=== PATIENT | female | born 1930 | race Caucasian/White ===

== ENCOUNTER 2021-04-18 23:50 | Inpatient (IN) ==
[2021-04-18] MEDS ORDERED: ONDANSETRON INJ 2 MG/ML 2 ML VIAL ONE (23:58)
--- NOTE | 2021-04-19 00:10 | Emergency Department Note ---
Impression & Plan Femur fracture, right, Fall ED Provider Note NAME: TONY DEL CID AGE: 89 SEX: F ARRIVES VIA: Ambulance INFORMANT: Patient ED PROVIDER(S): Flor Chery DO CHIEF COMPLAINT: Right leg pain PLAN: Dis[facility]: [facility] Stable MEDICAL DECISION MAKING: This is an 89-year-old female patient who suffered a fall tonight at her son's home landing on her right leg. The patient believes that she tripped over her own feet and suffered a significant injury to her right proximal femur. X-ray confirms a comminuted right proximal femur fracture. It is located just distal to the lesser trochanter. The patient was transported here in a Wyatt splint which offered some relief of her pain. She received multiple doses of IV fentanyl for pain. It does not seem as if she is injured any other part of her body during this fall. I discussed the case with orthopedics and they agreed to take the patient to the OR tomorrow. I discussed the case with the [facility] hospitalist and they will evaluate the patient for admission to the hospital. Triage Nursing notes reviewed and agree with them. Additional history obtained from EMS and the patient's family Prior medical records reviewed Vital Signs: reviewed and remarkable for hypertension Differential diagnosis: Hip fracture, femur fracture, mechanical fall, electrolyte abnormality, UTI, generalized weakness ER treatment provided: IV fentanyl x3 IV normal saline Diagnostics interpreted by me: ECG: Sinus bradycardia at a rate of [address] segment elevation or signs of ischemia. There is no ectopy. QTC is 456 ms. Cardiac Monitoring: Sinus bradycardia at 54 Laboratory studies: See below Imaging studies: As per my interpretation Right femur x-ray: Comminuted proximal femur fracture Chest x-ray: No acute pulmonary infiltrates or consolidations Consultation(s): Dr. Burroughs - orthopedics HPI: 89/F arrives for evaluation of right leg pain. The patient was preparing to go to bed tonight while visiting her son's home when she tripped over her feet and fell to the floor landing on her right leg. She has an obvious deformity of her right midshaft femur. Patient denies feeling unwell or weak prior to the fall. She denies striking her head or losing consciousness. BLS arrived on scene and found the patient to have a deformity of the midshaft femur and a Wyatt traction splint was applied. SB: See above HPI for pertinent positives & negatives. A total of 10 systems reviewed and were otherwise negative. PAST MEDICAL HISTORY:See Below PAST SURGICAL HISTORY:See Below FAMILY HISTORY:See Below SOCIAL HISTORY:The patient lives near [place] but is visiting her son in [facility]. HOME MEDICATIONS:See Below ALLERGIES:See Below VITALS:See Below PHYSICAL EXAMINATION: HEENT: Head - normocephalic and atraumatic. Pupils are equal, round, and reactive to light. Extraocular eye muscles are intact and sclera are anicteric. Ears - bilaterally patent canals with no evidence of hemotympanum. Nose - moist nasal mucosa without evidence of trauma or discharge. Mouth - moist buccal mucosa with no trauma to the teeth or signs of malocclusion. Neck: The neck is supple and there is no pain to palpation over the posterior cervical spine and no obvious step-offs or deformities. There is no JVD or tracheal deviation. Chest: There are no signs of deformities, contusions or abrasions to the chest wall. There is no obvious crepitus or paradoxical chest rise. Heart: Bradycardic rate and regular rhythm. There is a normal S1 and S2 with no murmurs, clicks, or gallops appreciated. Lungs: Clear to auscultation bilaterally with no wheezes, rales, or rhonchi. Abdomen: Soft, completely nontender, nondistended, with good bowel sounds. T here is no sign of trauma such as contusions, abrasions or penetrations. There are no palpable pulsatile masses or hepatosplenomegaly. There is no guarding, rigidity, or rebound noted. Pelvis: Stable to rock and compression. Extremities: Wyatt splint remains in place and is applying good traction to the right lower extremity. There are easily palpable dorsalis pedis and posterior tibial pulses. The patient is able to wiggle her toes and she has good capillary refill to the toes. Neuro: The patient is awake and alert and easily able to follow commands. Muscle strength is 5 out of 5 in all 4 extremities. Otherwise, neuro exam is unremarkable. ED COURSE: Times/Reassessments: 0000: The patient was evaluated in room C6. She was given 4 mg of IV Zofran as she was complaining of nausea. A complete history and physical was performed. Laboratory studies were drawn as above the patient was given an additional 50 mcg of IV fentanyl for her pain. Patient went for plain x-rays of the right femur and a portable chest x-ray. Covid testing was performed. A Brock catheter was placed. I discussed the case with orthopedics and they recommended admission to the hospital by internal medicine and they would take the patient to the OR later today. Patient complained of increasing pain again and was given an additional IV dose of fentanyl. Flor Chery DO Past Med/Surg History Medical History (Updated 04/19/21 @ 08:08 by Flor Chery DO) Anemia Constipation Depression Dermatitis Hyperlipidemia Hypertension Social History Smoking Status: Former smoker Tobacco Type: Cigarettes Feels Safe at Home: Yes Assistive Devices: Brace/Splint/Immobilizer Home Meds Home Medications Medication Instructions Recorded Confirmed Stool Softener (docusate olimpia) 100 mg PO DAILY 04/19/21 04/19/21 aspirin 81 mg PO DAILY 04/19/21 04/19/21 hydrochlorothiazide 25 mg tablet 12.5 mg PO Q OTHER DAY 04/19/21 04/19/21 metoprolol succinate 25 mg 25 mg PO DAILY 04/19/21 04/19/21 tablet,extended release 24 hr quinapril 10 mg tablet 10 mg PO BID 04/19/21 04/19/21 quinapril 20 mg tablet 20 mg PO BID 04/19/21 04/19/21 rosuvastatin 40 mg tablet 40 mg PO DAILY 04/19/21 04/19/21 sertraline 25 mg tablet 12.5 mg PO DAILY 04/19/21 04/19/21 triamcinolone acetonide 0.1 % 160 applic TOPICAL BID 04/19/21 04/19/21 topical cream Results & Data (ED) Vital Signs Vital Signs - 24 hr 04/18/21 23:59 04/19/21 00:17 04/19/21 00:31 Temperature 36.5 C Temperature Source Oral Pulse Rate 52 L 41 L 41 L Pulse Rate from SpO2 Sensor 51 L 42 L Pulse Rhythm Regular Respiratory Rate 18 16 18 Respiratory Effort / Characteristics Non-Labored Spontaneous Respiratory Depth Normal Respiratory Pattern Regular Blood Pressure 157/64 H 171/97 H Blood Pressure Mean 95 121 Blood Pressure Position Sitting Pulse Oximetry 94 99 100 Oxygen Delivery Method Nasal Cannula Nasal Cannula Nasal Cannula Oxygen Flow Rate 2 2 2 Sepsis Recent Fever Within 48 Hours No Sepsis New/Unexplained Change in Mental Status No Sepsis Action Taken by Nursing No Action Required Oxygen Flow Rate - Titration Pulse Oximetry Post Tiitration 04/19/21 00:46 04/19/21 02:00 04/19/21 02:30 Temperature Temperature Source Pulse Rate 50 L 50 L Pulse Rate from SpO2 Sensor 51 L 50 L Pulse Rhythm Respiratory Rate 21 20 Respiratory Effort / Characteristics Respiratory Depth Respiratory Pattern Blood Pressure 159/69 H 160/67 H Blood Pressure Mean 99 98 Blood Pressure Position Pulse Oximetry 85 L 93 99 Oxygen Delivery Method Room Air Nasal Cannula Nasal Cannula Nasal Cannula Oxygen Flow Rate 2 2 Sepsis Recent Fever Within 48 Hours Sepsis New/Unexplained Change in Mental Status Sepsis Action Taken by Nursing Oxygen Flow Rate - Titration 2 Pulse Oximetry Post Tiitration 100 04/19/21 03:00 Temperature Temperature Source Pulse Rate 48 L Pulse Rate from SpO2 Sensor 48 L Pulse Rhythm Respiratory Rate 16 Respiratory Effort / Characteristics Respiratory Depth Respiratory Pattern Blood Pressure 164/58 H Blood Pressure Mean 93 Blood Pressure Position Pulse Oximetry 97 Oxygen Delivery Method Nasal Cannula Oxygen Flow Rate 2 Sepsis Recent Fever Within 48 Hours Sepsis New/Unexplained Change in Mental Status Sepsis Action Taken by Nursing Oxygen Flow Rate - Titration Pulse Oximetry Post Tiitration Laboratory Data Result diagrams: 04/18/21 23:08 04/18/21 23:08 Lab Results 04/18/21 04/18/21 04/19/21 Range/Units 23:08 23:08 02:35 WBC 7.42 (4.8-10.8) K/uL RBC 3.83 L (4.2-5.4) M/uL Hgb 11.4 L (12.0-16.0) g/dL Hct 35.5 L (37-47) % MCV 92.7 (80-100) fL MCH 29.8 (25-34) pg MCHC 32.1 (32-36) g/dL RDW Std Deviation 44.3 (36.4-46.3) fL RDW Coeff of Alexandru 13.1 (11.5-14.5) % Plt Count 125 L (130-400) K/uL MPV 10.7 H (7.4-10.4) fL Immature Gran % (Auto) 0.4 % Neut % (Auto) 70.3 % Lymph % (Auto) 19.7 % [place] % (Auto) 8.0 % Eos % (Auto) 1.3 % Baso % (Auto) 0.3 % Neut # (Auto) 5.22 (1.4-6.5) K/uL Lymph # (Auto) 1.46 (1.2-3.4) K/uL [place] # (Auto) 0.59 (0.11-0.59) K/uL Eos # (Auto) 0.10 (0-0.5) K/uL Baso # (Auto) 0.02 (0-0.2) K/uL Immature Gran # (Auto) 0.03 H (0.00-0.02) K/uL Sodium 142 (136-145) mmol/L Potassium 4.1 (3.5-5.1) mmol/L Chloride 109 H (98-107) mmol/L Carbon Dioxide 31 (21-32) mmol/L Anion Gap 2.0 L (3-11) BUN 29 H (7-18) mg/dl Creatinine 1.00 (0.6-1.2) mg/dl Est Cr Clr Drug Dosing 37.4 ml/min Est GFR ( Amer) 57.8 ml/min Est GFR (Non-Af Amer) 49.9 ml/min BUN/Creatinine Ratio 28.9 H (10-20) Glucose 139 H (70-99) mg/dl Calcium 8.8 (8.5-10.1) mg/dl Total Bilirubin 0.5 (0.2-1) mg/dl AST 18 (15-37) U/L ALT 10 L (12-78) U/L Alkaline Phosphatase 85 (45-117) U/L Total Protein 6.7 (6.4-8.2) gm/dl Albumin 3.4 (3.4-5.0) gm/dl Globulin 3.3 (2.5-4.0) gm/dl Albumin/Globulin Ratio 1.0 (0.9-2) Urine Color Yellow Urine Appearance Clear (Clear) Urine pH 5.5 (4.5-7.5) Ur Specific [place] 1.019 (1.000-1.030) Urine Protein Negative (Negative) Urine Glucose (UA) Negative (Negative) Urine Ketones Negative (Negative) Urine Blood Negative (Negative) Urine Nitrite Negative (Negative) Urine Bilirubin Negative (Negative) Urine Urobilinogen Negative (Negative) Ur Leukocyte Esterase Trace H (Negative) Urine WBC (Auto) 1-5 (0-5) /hpf Urine RBC (Auto) 0-4 (0-4) /hpf U Hyaline Cast (Auto) 1-5 (0-5) /lpf U Epithel Cells (Auto) 20-30 H (0-5) /lpf Urine Bacteria (Auto) Negative (Negative) COVID-19 Eval Order SARS-CoV-2 (PCR) (Negative) 04/19/21 04/19/21 Range/Units 03:00 03:00 WBC (4.8-10.8) K/uL RBC (4.2-5.4) M/uL Hgb (12.0-16.0) g/dL Hct (37-47) % MCV (80-100) fL MCH (25-34) pg MCHC (32-36) g/dL RDW Std Deviation (36.4-46.3) fL RDW Coeff of Alexandru (11.5-14.5) % Plt Count (130-400) K/uL MPV (7.4-10.4) fL Immature Gran % (Auto) % Neut % (Auto) % Lymph % (Auto) % [place] % (Auto) % Eos % (Auto) % Baso % (Auto) % Neut # (Auto) (1.4-6.5) K/uL Lymph # (Auto) (1.2-3.4) K/uL [place] # (Auto) (0.11-0.59) K/uL Eos # (Auto) (0-0.5) K/uL Baso # (Auto) (0-0.2) K/uL Immature Gran # (Auto) (0.00-0.02) K/uL Sodium (136-145) mmol/L Potassium (3.5-5.1) mmol/L Chloride (98-107) mmol/L Carbon Dioxide (21-32) mmol/L Anion Gap (3-11) BUN (7-18) mg/dl Creatinine (0.6-1.2) mg/dl Est Cr Clr Drug Dosing ml/min Est GFR ( Amer) ml/min Est GFR (Non-Af Amer) ml/min BUN/Creatinine Ratio (10-20) Glucose (70-99) mg/dl Calcium (8.5-10.1) mg/dl Total Bilirubin (0.2-1) mg/dl AST (15-37) U/L ALT (12-78) U/L Alkaline Phosphatase (45-117) U/L Total Protein (6.4-8.2) gm/dl Albumin (3.4-5.0) gm/dl Globulin (2.5-4.0) gm/dl Albumin/Globulin Ratio (0.9-2) Urine Color Urine Appearance (Clear) Urine pH (4.5-7.5) Ur Specific [place] (1.000-1.030) Urine Protein (Negative) Urine Glucose (UA) (Negative) Urine Ketones (Negative) Urine Blood (Negative) Urine Nitrite (Negative) Urine Bilirubin (Negative) Urine Urobilinogen (Negative) Ur Leukocyte Esterase (Negative) Urine WBC (Auto) (0-5) /hpf Urine RBC (Auto) (0-4) /hpf U Hyaline Cast (Auto) (0-5) /lpf U Epithel Cells (Auto) (0-5) /lpf Urine Bacteria (Auto) (Negative) COVID-19 Eval Order Covid19 at [facility] [place] SARS-CoV-2 (PCR) NEGATIVE (Negative) Administered Medications Discontinued Medications Fentanyl Citrate (Fentanyl Citrate 100 Mcg/2 Ml Vial) 50 mcg IV NOW ONE Stop: 04/19/21 00:37 Last Admin: 04/19/21 00:43 Dose: 50 mcg Documented by: [id number] Fentanyl Citrate (Fentanyl Citrate 100 Mcg/2 Ml Vial) 50 mcg IV NOW ONE Stop: 04/19/21 02:06 Last Admin: 04/19/21 02:12 Dose: 50 mcg Documented by: [id number] Hydromorphone HCl (Hydromorphone Inj 0.5 Mg/0.5 Ml Syr) 0.25 mg IV NOW STA Stop: 04/19/21 04:07 Last Admin: 04/19/21 04:11 Dose: Not Given Documented by: [id number] Hydromorphone HCl (Hydromorphone Inj 0.5 Mg/0.5 Ml Syr) Confirm Administered Dose 0.5 mg .ROUTE .STK-MED ONE Stop: 04/19/21 03:56 Last Admin: 04/19/21 03:58 Dose: 0.25 mg Documented by: [id number] Hydromorphone HCl (Hydromorphone Inj 0.5 Mg/0.5 Ml Syr) 0.25 mg IV NOW STA Stop: 04/19/21 05:58 Last Admin: 04/19/21 06:02 Dose: 0.25 mg Documented by: [id number] Sodium Chloride (Nss) 500 mls @ 999 mls/hr IV .Q31M ONE Stop: 04/19/21 01:34 Last Infusion: 04/19/21 01:57 Dose: 0 mls/hr Documented by: [id number] Admin: 04/19/21 01:15 Dose: 999 mls/hr Documented by: [id number] Sodium Chloride (Nss) 500 mls @ 125 mls/hr IV .Q4H REYNALDO Stop: 05/19/21 01:14 Last Admin: 04/19/21 06:41 Dose: Not Given Documented by: [id number] Infusion: 04/19/21 06:00 Dose: 0 mls/hr Documented by: [id number] Admin: 04/19/21 01:57 Dose: 125 mls/hr Documented by: [id number] Ondansetron HCl (Ondansetron Inj 2 Mg/Ml 2 Ml Vial) Confirm Administered Dose 4 mg .ROUTE .STK-MED ONE Stop: 04/18/21 23:59 Last Admin: 04/19/21 00:04 Dose: 4 mg Documented by: [id number] Imaging Data Radiologist's Impression: Chest X-Ray 04/19/21 00:04 XR chest 1V portable CLINICAL HISTORY: Preoperative chest. Femoral fracture. COMPARISON STUDY: No previous studies for comparison. FINDINGS: The heart is mildly enlarged. There is no failure. There is no focal pulmonary consolidation. There are no pleural effusions. There is minor interstitial thickening a finding which could be chronic.[ IMPRESSION: 1. Minor age indeterminant interstitial thickening. No evidence of overt failure. No evidence of focal pulmonary consolidation ACT 112: Negative or not required by law. Electronically signed by: Tonio Holden M.D. 04/19/2021 6:44 AM Femur X-Ray 04/19/21 00:04 XR femur RT 2V routine CLINICAL HISTORY: Right femur pain status post trauma COMPARISON: None. DISCUSSION: There is acute oblique mildly comminuted subtrochanteric hip fracture with extension to the lesser trochanter. No additional fractures are visualized. The distal fragment is medially displaced by one full shaft width. There is mild vertex lateral angulation the fracture site.. IMPRESSION: 1. Angulated displaced subtrochanteric fracture with extension to the lesser trochanter. ACT 112: Negative or not required by law. Electronically signed by: Tonio Holden M.D. 04/19/2021 6:45 AM Discharge Plan Visit Data Chief Complaint: Leg Injury/Pain Stated Complaint: FALL/w/ FEMUR DEFORMITY ED Provider: Flor Chery Discharge Problem: Femur fracture, right, Fall Patient Disposition: Admitted As Inpatient Discharge Instructions Interventions: ED Discharge Assessment Last Done: 04/19/21 06:07 Discharge Problem: Femur fracture, right Qualifiers: Encounter type: initial encounter Fracture type: closed Fracture morphology: comminuted Fracture alignment: displaced Fall Qualifiers: Encounter type: initial encounter Qualified Code(s): W19.XXXA - Unspecified fall, initial encounter
[2021-04-19 00:18] LABS: Basophils # (auto) 0.02 K/uL (0-0.2); Basophils % (auto) 0.3 %; Eosinophils % (auto) 1.3 %; Hematocrit (blood only) 35.5 % (37-47); Hemoglobin 11.4 g/dL (12.0-16.0); Immature Granulocytes # (auto) 0.03 K/uL (0.00-0.02); Immature Granulocytes % (auto) 0.4 %; Lymphocytes # (auto) 1.46 K/uL (1.2-3.4); Lymphocytes % (auto) 19.7 %; Mean Corpuscular Hemoglobin 29.8 pg (25-34); Mean Corpuscular Hgb Conc 32.1 g/dL (32-36); Mean Corpuscular Volume 92.7 fL (80-100); Mean Platelet Volume 10.7 fL (7.4-10.4); Monocytes # (auto) 0.59 K/uL (0.11-0.59); Neutrophils # (auto) 5.22 K/uL (1.4-6.5); Neutrophils % (auto) 70.3 %; Platelet Count 125 K/uL (130-400); RDW Coefficient of Variation 13.1 % (11.5-14.5); RDW Standard Deviation 44.3 fL (36.4-46.3); Red Blood Count 3.83 M/uL (4.2-5.4); White Blood Count 7.42 K/uL (4.8-10.8)
[2021-04-19 00:27] LABS: Albumin Level 3.4 gm/dl (3.4-5.0); BUN Creatinine Ratio 28.9 (10-20); Calcium 8.8 mg/dl (8.5-10.1); Creatinine Clr Calc Pharmacy 37.4 ml/min; Est GFR (African American) 57.8 ml/min; Est GFR (Non-African American) 49.9 ml/min; Potassium 4.1 mmol/L (3.5-5.1)
[2021-04-19 00:29] LABS: Bilirubin,Total 0.5 mg/dl (0.2-1); Globulin 3.3 gm/dl (2.5-4.0); Total Protein 6.7 gm/dl (6.4-8.2)
[2021-04-19] MEDS ORDERED: fentaNYL citrate 100 MCG/2 ML VIAL IV ONE ×2 (00:36→02:05)
[2021-04-19] MEDS ORDERED: SODIUM CHLORIDE 0.9% 500 ML IV ONE (01:04)
[2021-04-19] MEDS: SODIUM CHLORIDE 0.9% 500 ML IV SCH ×2 (01:57→06:41)
[2021-04-19 02:48] LABS: Appearance Urine Clear (Clear); Bacteria Urine Automated Negative (Negative); Bilirubin Urine Negative (Negative); Blood Urine Negative (Negative); Color Urine Yellow; Epithelial Cell Urine Auto 20-30 /lpf (0-5); Glucose Urine UA Negative (Negative); Ketones Urine Negative (Negative); Leukocyte Esterase Urine Trace (Negative); Nitrite Urine Negative (Negative); Protein Urine Negative (Negative); RBC Urine Automated 0-4 /hpf (0-4); Specific Gravity Urine 1.019 (1.000-1.030); Urobilinogen Urine Negative (Negative); pH Urine 5.5 (4.5-7.5)
--- NOTE | 2021-04-19 03:24 | History & Physical Report ---
Date of Service April 19, 2021 Assessment & Plan (1) Closed fracture of proximal end of right femur: Plan: Geriatric hip fracture protocol order set- NPO NSS + KCl 20 mEq at 80 mils per hour [place] 5/325, 1 p.o. every 6 hours as needed moderate pain [place] 5/325, 2 p.o. every 6 hours as needed severe pain Dilaudid 0.25 mg IV every 3 hours as needed moderate pain Dilaudid 0.5 mg IV every 3 hours as needed severe pain Zofran 4 mg IV every 6 hours as needed nausea Famotidine 20 mg IV every 12 hours (2) Hypertension: Plan: Hold metoprolol succinate due to bradycardia, with heart rate occasionally in the upper 30s in the ED Hold quinapril and HCTZ while n.p.o. Hydralazine 10 mg IV every 4 hours as needed systolic blood pressure greater than 160 (3) Hyperlipidemia: Plan: Hold rosuvastatin until after surgery (4) Depression: Plan: Hold sertraline until after surgery (5) Constipation: Plan: Hold docusate until after surgery (6) Dermatitis: Plan: Triamcinolone acetonide can be used twice daily as needed History of Present Illness Chief Complaint: The patient presents to the emergency department after a fall tonight at her son's home, tripping over her own feet, where she landed on her right leg, and developed immediate severe right hip pain Primary Care Provider: Radha Arzate The patient is an 89-year-old female with a past medical history including hypertension, hyperlipidemia, depression, dermatitis and constipation, who presents to the emergency department as noted above. She did receive fentanyl 50 mcg IV x2 with only mild improvement in pain. X-ray in the emergency department showed a displaced right proximal femur fracture. The patient also received Zofran 4 mg IV, normal saline 500 mL fluid bolus, and then 500 mils at 125 mils per hour. Home Medications Medication Instructions Recorded Confirmed Type Stool Softener (docusate olimpia) 100 mg PO DAILY 04/19/21 04/19/21 History aspirin 81 mg PO DAILY 04/19/21 04/19/21 History hydrochlorothiazide 25 mg tablet 12.5 mg PO Q OTHER DAY 04/19/21 04/19/21 History metoprolol succinate 25 mg 25 mg PO DAILY 04/19/21 04/19/21 History tablet,extended release 24 hr quinapril 10 mg tablet 10 mg PO BID 04/19/21 04/19/21 History quinapril 20 mg tablet 20 mg PO BID 04/19/21 04/19/21 History rosuvastatin 40 mg tablet 40 mg PO DAILY 04/19/21 04/19/21 History sertraline 25 mg tablet 12.5 mg PO DAILY 04/19/21 04/19/21 History triamcinolone acetonide 0.1 % 160 applic TOPICAL BID 04/19/21 04/19/21 History topical cream Past Med/Surg History Medical History (Updated 04/19/21 @ 05:25 by Solomon Alexis MD) Constipation Depression Dermatitis Hyperlipidemia Hypertension Social History Smoking Status: Former smoker Tobacco Type: Cigarettes Feels Safe at Home: Yes Review of Systems Review of Systems: The patient denies chest pain, palpitations, shortness of breath, dyspnea on exertion, cough, sore throat, fevers, chills, sweats, weight change, fatigue, nausea, vomiting, diarrhea , constipation, abdominal pain, pelvic pain, blood in urine or stool, dysuria, urinary frequency or urgency, lightheadedness, dizziness, headache, memory loss, loss of consciousness, rash, abnormal bruising or bleeding, focal or generalized weakness, numbness or tingling in arms, generalized arthralgias or myalgias, back or neck pain, or night sweats. The review of systems is otherwise negative other than for that already noted above, and at least 10 systems have been reviewed. Physical Exam Physical Exam: The patient is awake, alert and oriented 3, well developed and well nourished, normocephalic and atraumatic, lying in bed and in no acute distress. HEENT--PERRL, EOMI, mucous membranes and oropharynx dry. Neck--supple. No JVD. No bruits. Thyroid normal, trachea midline, no adenopathy. Heart--normal S1 and S2. No murmurs, rubs or gallops. Lungs--clear bilaterally, no respiratory distress, no accessory muscle use. Abdomen--normal bowel sounds and soft. Nontender. Nondistended, no hernias or masses, no organomegaly. Extremities--no cyanosis or clubbing. No edema. There are good distal pulses b/l. Dermatologic--skin is mildly dry Neurologic--cranial nerves II through XII grossly intact. Rheumatologic--limited due to right hip pain Psychiatric--normal affect. Results & Data Results & Data ([facility]) Vital Signs (Past 12 Hours) Vital Signs Temp Pulse Resp BP Pulse Ox 04/19/21 03:00 48 L 16 164/58 H 97 04/19/21 02:30 50 L 20 160/67 H 99 04/19/21 02:00 50 L 21 159/69 H 93 04/19/21 00:46 85 L 04/19/21 00:31 41 L 18 171/97 H 100 04/19/21 00:17 41 L 16 99 04/18/21 23:59 97.7 F 52 L 18 157/64 H 94 Laboratory Results Laboratory Results WBC 7.42 K/uL (4.8-10.8) 04/18/21 23:08 RBC 3.83 M/uL (4.2-5.4) L 04/18/21 23:08 Hgb 11.4 g/dL (12.0-16.0) L 04/18/21 23:08 Hct 35.5 % (37-47) L 04/18/21 23:08 MCV 92.7 fL (80-100) 04/18/21 23:08 MCH 29.8 pg (25-34) 04/18/21 23:08 MCHC 32.1 g/dL (32-36) 04/18/21 23:08 RDW Std Deviation 44.3 fL (36.4-46.3) 04/18/21 23:08 RDW Coeff of Alexandru 13.1 % (11.5-14.5) 04/18/21 23:08 Plt Count 125 K/uL (130-400) L 04/18/21 23:08 MPV 10.7 fL (7.4-10.4) H 04/18/21 23:08 Immature Gran % (Auto) 0.4 % 04/18/21 23:08 Neut % (Auto) 70.3 % 04/18/21 23:08 Lymph % (Auto) 19.7 % 04/18/21 23:08 [place] % (Auto) 8.0 % 04/18/21 23:08 Eos % (Auto) 1.3 % 04/18/21 23:08 Baso % (Auto) 0.3 % 04/18/21 23:08 Neut # (Auto) 5.22 K/uL (1.4-6.5) 04/18/21 23:08 Lymph # (Auto) 1.46 K/uL (1.2-3.4) 04/18/21 23:08 [place] # (Auto) 0.59 K/uL (0.11-0.59) 04/18/21 23:08 Eos # (Auto) 0.10 K/uL (0-0.5) 04/18/21 23:08 Baso # (Auto) 0.02 K/uL (0-0.2) 04/18/21 23:08 Immature Gran # (Auto) 0.03 K/uL (0.00-0.02) H 04/18/21 23:08 Sodium 142 mmol/L (136-145) 04/18/21 23:08 Potassium 4.1 mmol/L (3.5-5.1) 04/18/21 23:08 Chloride 109 mmol/L (98-107) H 04/18/21 23:08 Carbon Dioxide 31 mmol/L (21-32) 04/18/21 23:08 Anion Gap 2.0 (3-11) L 04/18/21 23:08 BUN 29 mg/dl (7-18) H 04/18/21 23:08 Creatinine 1.00 mg/dl (0.6-1.2) 04/18/21 23:08 Est Cr Clr Drug Dosing 37.4 ml/min 04/18/21 23:08 Est GFR ( Amer) 57.8 ml/min 04/18/21 23:08 Est GFR (Non-Af Amer) 49.9 ml/min 04/18/21 23:08 BUN/Creatinine Ratio 28.9 (10-20) H 04/18/21 23:08 Glucose 139 mg/dl (70-99) H 04/18/21 23:08 Calcium 8.8 mg/dl (8.5-10.1) 04/18/21 23:08 Total Bilirubin 0.5 mg/dl (0.2-1) 04/18/21 23:08 AST 18 U/L (15-37) 04/18/21 23:08 ALT 10 U/L (12-78) L 04/18/21 23:08 Alkaline Phosphatase 85 U/L (45-117) 04/18/21 23:08 Total Protein 6.7 gm/dl (6.4-8.2) 04/18/21 23:08 Albumin 3.4 gm/dl (3.4-5.0) 04/18/21 23:08 Globulin 3.3 gm/dl (2.5-4.0) 04/18/21 23:08 Albumin/Globulin Ratio 1.0 (0.9-2) 04/18/21 23:08 Urine Color Yellow 04/19/21 02:35 Urine Appearance Clear (Clear) 04/19/21 02:35 Urine pH 5.5 (4.5-7.5) 04/19/21 02:35 Ur Specific [place] 1.019 (1.000-1.030) 04/19/21 02:35 Urine Protein Negative (Negative) 04/19/21 02:35 Urine Glucose (UA) Negative (Negative) 04/19/21 02:35 Urine Ketones Negative (Negative) 04/19/21 02:35 Urine Blood Negative (Negative) 04/19/21 02:35 Urine Nitrite Negative (Negative) 04/19/21 02:35 Urine Bilirubin Negative (Negative) 04/19/21 02:35 Urine Urobilinogen Negative (Negative) 04/19/21 02:35 Ur Leukocyte Esterase Trace (Negative) H 04/19/21 02:35 Urine WBC (Auto) 1-5 /hpf (0-5) 04/19/21 02:35 Urine RBC (Auto) 0-4 /hpf (0-4) 04/19/21 02:35 U Hyaline Cast (Auto) 1-5 /lpf (0-5) 04/19/21 02:35 U Epithel Cells (Auto) 20-30 /lpf (0-5) H 04/19/21 02:35 Urine Bacteria (Auto) Negative (Negative) 04/19/21 02:35 COVID-19 Eval Order Covid[facility] at [facility] 04/19/21 03:00 Code Status & VTE Plan Code Status Full code VTE Prophylaxis Plan VTE Prophylaxis will be ordered: Yes PG Care Time/CCT Total # of Minutes Spent Total Time Spent with Patient: Total time spent is greater than 50% in coordination of care (as documented) at patient's floor/unit and/or counseling patient: Coding Level of Care Code 41027 Initial Inpt Care Lvl 3 Diagnoses Closed fracture of proximal end of right femur S72.001A Hypertension I10 Hyperlipidemia E78.5 Depression F32.9 Constipation K59.00 Dermatitis L30.9
[2021-04-19] MEDS ORDERED: HYDROmorphone INJ 0.5 MG/0.5 ML SYR ONE (03:55)
[2021-04-19] MEDS ORDERED: HYDROmorphone INJ 0.5 MG/0.5 ML SYR IV STA ×2 (04:06→05:57)
[2021-04-19] MEDS ORDERED: hydrALAZINE HCL 20 MG/ML VIAL IV PRN (05:26)
[2021-04-19] MEDS ORDERED: bisacodyL 10 MG SUPP PR PRN ×2 (06:25→13:36)
[2021-04-19] MEDS ORDERED: ACETAMINOPHEN 325 MG TAB PO PRN (06:25)
[2021-04-19] MEDS ORDERED: HYDROmorphone INJ 0.5 MG/0.5 ML SYR IV PRN ×3 (06:25→13:36)
[2021-04-19] MEDS ORDERED: NALOXONE HCL 0.4 MG/1 ML VIAL/CARP IV PRN ×2 (06:25→13:36)
[2021-04-19] MEDS ORDERED: MAGNESIUM HYDROXIDE SUSP 30 ML UDC PO PRN ×2 (06:25→13:36)
[2021-04-19] MEDS ORDERED: HYDROCODONE/ACETAMOPHEN 5/325MG TAB PO PRN ×2 (06:25)
[2021-04-19] MEDS ORDERED: EPINEPHrine INJ 1 MG/ML AMP ONE (06:29)
[2021-04-19] MEDS ORDERED: ROPIVACAINE 0.5% 5 MG/ML 30 ML VIAL ONE (06:30)
--- NOTE | 2021-04-19 06:45 | XRay Report ---
XR chest 1V portable CLINICAL HISTORY: Preoperative chest. Femoral fracture. COMPARISON STUDY: No previous studies for comparison. FINDINGS: The heart is mildly enlarged. There is no failure. There is no focal pulmonary consolidatio n. There are no pleural effusions. There is minor interstitial thickening a finding which could be ch ronic.[ IMPRESSION: 1. Minor age indeterminant interstitial thickening. No evidence of overt failure. No evidence of foca l pulmonary consolidation ACT 112: Negative or not required by law. Electronically signed by: Tonio Holden M.D. 04/19/2021 6:44 AM
--- NOTE | 2021-04-19 06:47 | XRay Report ---
XR femur RT 2V routine CLINICAL HISTORY: Right femur pain status post trauma COMPARISON: None. DISCUSSION: There is acute oblique mildly comminuted subtrochanteric hip fracture with extension to t he lesser trochanter. No additional fractures are visualized. The distal fragment is medially displac ed by one full shaft width. There is mild vertex lateral angulation the fracture site.. IMPRESSION: 1. Angulated displaced subtrochanteric fracture with extension to the lesser trochanter. ACT 112: Negative or not required by law. Electronically signed by: Tonio Holden M.D. 04/19/2021 6:45 AM
[2021-04-19] MEDS ORDERED: Nursing to Pharmacy Communication SCH (07:00)
[2021-04-19] MEDS ORDERED: PROPOFOL IV EMULSION 10 MG/ML 20 ML VIAL IV ONE (07:47)
[2021-04-19] MEDS ORDERED: LIDOCAINE 2% 2 ML VIAL/AMP(20MG/ML) INFIL ONE (07:47)
[2021-04-19] MEDS ORDERED: ROCURONIUM BROMIDE 10 MG/ML 5 ML VIAL IV ONE (07:47)
[2021-04-19] MEDS ORDERED: fentaNYL citrate 100 MCG/2 ML VIAL ONE ×2 (07:47→13:21)
--- NOTE | 2021-04-19 08:04 | Orthopedic Consultation ---
Date of Consultation April 19, 2021 Assessment & Plan (1) Femur fracture, right: I discussed with the patient and her daughter was at the bedside today the diagnosis. Surgery is recommended to allow her to regain the ability to ambulate. Nonsurgical treatment would likely result in a malunion or nonunion of the fracture with functional deficits more than likely precluding her from walking and confining her to a wheelchair. I reviewed the risks and benefits of the surgery, alternatives to surgery, and expected outcomes. After reviewing all these she elected to proceed with surgery. All questions were answered. Because of her tremor she asked that her daughter sign her consent form. We will proceed to the operating room this morning for intramedullary nailing of her right femur fracture. Plan on readmitting her to the hospital after surgery for physical therapy and discharge planning. (2) Parkinsons disease: Parkinson's disease not a contraindication to surgery however does place her at risk for falls and subsequent complications after surgery. Patient understands this is a risk of surgery and still elects to proceed. History of Present Illness Reason for Consultation: Right subtroch femur fracture Attending Physician: Solomon Alexis MD History of Present Illness 89-year-old female, with a past medical history significant for Parkinson's disease, hypertension, hyperlipidemia, depression, dermatitis and constipation, fell last night at her son's home, tripping over her own feet, where she landed on her right leg, and developed immediate severe right hip pain. She was brought to the emergency room where x-rays demonstrated a subtroches right femur fracture. EMS services had put her in a splint which she felt was comfortable and was not bothering her skin. She was admitted to the internal medicine service. Orthopedics was consulted for management of her right femur fracture. Patient was seen and examined on the floor this morning. She reports the splint continues to fit her well. She denies any pain anywhere else in her body other than her right hip. She did not hit her head when she fell. Denies any numbness or tingling down the leg. She has had falls in the past but not for quite some time. She does live alone but has 4 sons and daughters that live not too far away. Home Medications Medication Instructions Recorded Confirmed Type Stool Softener (docusate olimpia) 100 mg PO DAILY 04/19/21 04/19/21 History aspirin 81 mg PO DAILY 04/19/21 04/19/21 History hydrochlorothiazide 25 mg tablet 12.5 mg PO Q OTHER DAY 04/19/21 04/19/21 History metoprolol succinate 25 mg 25 mg PO DAILY 04/19/21 04/19/21 History tablet,extended release 24 hr quinapril 10 mg tablet 10 mg PO BID 04/19/21 04/19/21 History quinapril 20 mg tablet 20 mg PO BID 04/19/21 04/19/21 History rosuvastatin 40 mg tablet 40 mg PO DAILY 04/19/21 04/19/21 History sertraline 25 mg tablet 12.5 mg PO DAILY 04/19/21 04/19/21 History triamcinolone acetonide 0.1 % 160 applic TOPICAL BID 04/19/21 04/19/21 History topical cream Patient History Medical History Anemia Constipation Depression Dermatitis Hyperlipidemia Hypertension Social History Smoking Status: Former smoker Tobacco Type: Cigarettes Second Hand Exposure: No; Hx Alcohol Use: No Hx Substance Use: No Preferred Language: Faroese Communication Ability: Effective Acquisition Analyst Required: No Beliefs That Will Affect Care: None Current Living Situation: Alone Feels Safe at Home: Yes Assistive Devices: Cane and Walker Physical Exam Physical Exam: On exam she is a pleasant female oriented x3 in no acute distress. Neurologically she has mild tremor in her right hand. Mild Parkinson facies features. Right lower extremity exam reveals no skin lesions. She has some swelling over the proximal femur and right hip where she is tender to palpation at the fracture site. The splint is in place and there is no skin irritation. She has palpable pulses distally. Wiggles her toes. Sensation intact to light touch dorsal and plantar aspects of her right foot. Results & Data ([facility]) Vital Signs (Past 12 Hours) Vital Signs Temp Pulse Resp BP BP Pulse Ox Pulse Ox 04/19/21 06:57 54 L 04/19/21 06:25 36.5 C 18 154/67 H 98 98 04/19/21 05:30 49 L 17 131/54 L 98 04/19/21 05:00 48 L 17 134/54 L 98 04/19/21 04:30 47 L 19 127/50 L 98 04/19/21 03:30 47 L 24 151/57 H 98 04/19/21 03:00 48 L 16 164/58 H 97 04/19/21 02:30 50 L 20 160/67 H 99 04/19/21 02:00 50 L 21 159/69 H 93 04/19/21 00:46 85 L 04/19/21 00:31 41 L 18 171/97 H 100 04/19/21 00:17 41 L 16 99 04/18/21 23:59 36.5 C 52 L 18 157/64 H 94 Diagnostic Findings X-rays done in the emergency room of the right femur are reviewed. These demonstrate a spiral fracture of the subtroches region of the right femur with a small comminuted fragment. Fracture is displaced with the proximal fragment flexed and anteriorly translated and the distal fragment extended and posteriorly translated on the lateral view. (1) Femur fracture, right Encounter type: initial encounter Fracture alignment: displaced Fracture morphology: comminuted Fracture type: closed
--- NOTE | 2021-04-19 08:48 | Anesthesiology Consultation ---
Date of Service April 19, 2021 Assessment & Plan Chart Review Chart Review: Acceptable Risk for Surgery (necessary surgery) and Patient NOT seen in Pre Admission Testing Consults Requested none ASA ASA3 Proposed Anesthesia Anesthesia Type: General Anesthesia Line Insertion: Arterial line (consented if necessary) Risk / Benefits Reviewed With: PT / POA / Parent / Guardian, Accepts Plan and Informed Consent Obtained History Surgery Operation Date: 04/19/21 08:40 Proposed Procedures p Right Proximal Femur Fracture Serafin Placement - Nicolás Varela MD The patient tripped over her own feet and fell breaking her right femur. She did not hit her head and had no LOC. The patient has a history of spinal stenosis and back surgery so we will proceed with general anesthesia. Height/Weight Height: 5 ft 5 in Weight: 69.6 kg Medications Home Medications Medication Instructions Recorded Confirmed Last Taken Stool Softener (docusate olimpia) 100 mg PO DAILY 04/19/21 04/19/21 Unknown aspirin 81 mg PO DAILY 04/19/21 04/19/21 04/18/21 hydrochlorothiazide 25 mg tablet 12.5 mg PO Q OTHER DAY 04/19/21 04/19/21 04/18/21 metoprolol succinate 25 mg 25 mg PO DAILY 04/19/21 04/19/21 04/18/21 tablet,extended release 24 hr quinapril 10 mg tablet 10 mg PO BID 04/19/21 04/19/21 04/18/21 quinapril 20 mg tablet 20 mg PO BID 04/19/21 04/19/21 04/18/21 rosuvastatin 40 mg tablet 40 mg PO DAILY 04/19/21 04/19/21 04/18/21 sertraline 25 mg tablet 12.5 mg PO DAILY 04/19/21 04/19/21 04/18/21 triamcinolone acetonide 0.1 % 160 applic TOPICAL BID 04/19/21 04/19/21 04/18/21 topical cream NPO Date Last Intake of Fluids: 04/18/21 Time Last Intake of Fluids: 20:00 Date Last Intake of Solids: 04/18/21 Time Last Intake of Solids: 19:00 Past Medical History Medical History Anemia Constipation Coronary artery disease Depression Dermatitis Hyperlipidemia Hypertension Parkinsons disease Spinal stenosis Exercise / Class Metabolic Activity III < 4 Walking/Shop/Light housework no chest pain or sob, no cough or fever Past Surgical History Surgical History History of ankle surgery History of back surgery Hx of heart artery stent Past Anesthesia History No Hx of Anesthesia Complications and No Family Hx of Anesthesia Complications History of PONV No Hx of PONV and No Hx of Motion Sickness Social History Smoking Status: Former smoker tobacco type: cigarettes Do You Dip or Chew Tobacco: No Hx Alcohol Use: No Hx Substance Use: No substance use type: does not use Review of Systems no chest pain or sob, no cough or fever, right thigh pain Physical Exam Vital Signs Last Vital Signs Temp 36.7 C 04/19/21 08:22 Pulse 53 L 04/19/21 08:22 Resp 20 04/19/21 08:22 BP 148/55 H 04/19/21 08:22 Pulse Ox 100 04/19/21 08:22 ENMT Mouth: + dentition abnormality (two teeth on bottom) and + poor dentition Thyromental Distance: > or= 3.5 Finger Breadths Mallampati Class: II Neck normal visual inspection Respiratory normal respiratory effort Auscultation: lungs clear to auscultation bilaterally Cardiovascular Rate/Rhythm: regular rate and regular rhythm Musculoskeletal Spine: no pain with cervical ROM Neurologic moves all extremities patient has resting tremor Psychiatric Orientation: alert and oriented x 3 Testing Laboratory Results 04/18/21 23:08 04/18/21 23:08 Urine Color Yellow 04/19/21 02:35 Urine Appearance Clear (Clear) 04/19/21 02:35 Urine pH 5.5 (4.5-7.5) 04/19/21 02:35 Ur Specific [place] 1.019 (1.000-1.030) 04/19/21 02:35 Urine Protein Negative (Negative) 04/19/21 02:35 Urine Glucose (UA) Negative (Negative) 04/19/21 02:35 Urine Ketones Negative (Negative) 04/19/21 02:35 Urine Nitrite Negative (Negative) 04/19/21 02:35 Ur Leukocyte Esterase Trace (Negative) H 04/19/21 02:35 Urine WBC (Auto) 1-5 /hpf (0-5) 04/19/21 02:35 Urine RBC (Auto) 0-4 /hpf (0-4) 04/19/21 02:35 U Hyaline Cast (Auto) 1-5 /lpf (0-5) 04/19/21 02:35 U Epithel Cells (Auto) 20-30 /lpf (0-5) H 04/19/21 02:35 Urine Bacteria (Auto) Negative (Negative) 04/19/21 02:35 Blood Type O Positive 04/19/21 06:39 Antibody Screen NEGATIVE 04/19/21 06:39 Electrocardiogram Date: 04/19/21 Findings: + SB @ (53) Chest X-Ray Date: 04/19/21 XR chest 1V portable CLINICAL HISTORY: Preoperative chest. Femoral fracture. COMPARISON STUDY: No previous studies for comparison. FINDINGS: The heart is mildly enlarged. There is no failure. There is no focal pulmonary consolidation. There are no pleural effusions. There is minor interstitial thickening a finding which could be chronic.[ IMPRESSION: 1. Minor age indeterminant interstitial thickening. No evidence of overt failure. No evidence of focal pulmonary consolidation ACT 112: Negative or not required by law. Electronically signed by: Tonio Holden M.D. 04/19/2021 6:44 AM Dictated: 04/19/2143Transcribed: 04/19/21 [id number]
--- NOTE | 2021-04-19 08:52 | Electrocardiogram Report ---
Test Reason : Blood Pressure : / mmHG Vent. Rate : 053 BPM Atrial Rate : 053 BPM P-R Int : 148 ms QRS Dur : 088 ms QT Int : 486 ms P-R-T Axes : 073 030 052 degrees QTc Int : 456 ms Sinus bradycardia Otherwise normal ECG No previous ECGs available Confirmed by Mickey Gardner ([id number]) on 04/19/2021 8:52:01 AM Referred By: REFERRED SELF Confirmed By:Mickey Gardner
[2021-04-19] MEDS ORDERED: PHENYLEPHRINE 100MCG/ML 5ML SYR ONE (09:20)
[2021-04-19] MEDS ORDERED: LACTATED RINGER'S 1,000 ML IV SCH (09:30)
[2021-04-19] MEDS ORDERED: ONDANSETRON INJ 2 MG/ML 2 ML VIAL ONE (10:02)
[2021-04-19] MEDS ORDERED: GLYCOPYRROLATE 0.2 MG/ML VIAL ONE (10:02)
[2021-04-19] MEDS ORDERED: NEOSTIGMINE METHYLSULFATE 1 MG/ML 10ML VIAL ONE (10:02)
[2021-04-19] MEDS ORDERED: ceFAZolin 2000MG 2,000 MG/15 ML SYR IV ONE (10:21)
[2021-04-19] MEDS ORDERED: BUPIVACAINE/EPINEPHRINE 0.5% MPF 1:200,000 30 ML VIAL ONE (11:06)
[2021-04-19] MEDS ORDERED: TRANEXAMIC ACID / 0.7% NACL 1000MG/100ML BAG IV ONE (11:11)
[2021-04-19] MEDS ORDERED: ePHEDrine sulfate 50 MG/ML AMP ONE (12:52)
[2021-04-19] MEDS ORDERED: SODIUM CHLORIDE 0.9% 250 ML IV PRN ×4 (13:18→19:53)
[2021-04-19 13:28] LABS: iSTAT Creatinine 0.9 mg/dl (0.6-1.3); iSTAT Hemoglobin 6.8 g/dl (12.0-16.0); iSTAT Ionized Calcium 1.17 mmol/l (1.12-1.32)
--- NOTE | 2021-04-19 13:35 | Operative Report ---
Post Operative Report Pre & Post Diagnosis Operation Date: 04/19/21 08:40 Pre-Op Diagnosis: Right Comminuted Subtrochanteric Femur Fracture Post-Op Diagnosis: Right Comminuted Subtrochanteric Femur Fracture I identified the patient and participated in the time-out.: Yes Procedure Operation Date: 04/19/21 08:40 Actual Procedures p Open reduction, internal fixation, Right Comminuted Subtrochanteric Femur Fracture with Intramedullary Serafin (Right) - Nicolás Varela MD Surgeon Nicolás Varela MD Cdl A Driver Mahendra Knutson MD and MARIO Lyn PA-C Estimated Blood Loss 200 Findings Consistent with Post-Op Diagnosis Specimens None Anesthesia Type General Complications none Disposition Disposition: Recovery Room Indications 89-year-old female, medical history significant for Parkinson's disease, fell yesterday evening at her son's home. She was brought to the emergency room where x-rays demonstrated a comminuted subtrochanteric right femur fracture with displacement. She was admitted to the internal medicine service overnight. I saw her this morning. Surgery was recommended to allow her to regain the ability to ambulate. After reviewing all the risks and benefits of surgery, alternatives to surgery, and expected outcomes she elected to proceed. All questions were answered. Informed consent was signed. Description of Procedure Patient was identified in the preoperative holding area where her surgical site was marked. She was brought back to the main operating room where general anesthesia was administered on the hospital bed. She was then carefully moved onto the fracture table. She was positioned in the lateral decubitus position. All bony prominences were padded. Perioperative antibiotics were administered. Fluoroscopy was brought in. We were able to obtain good fluoroscopic views of the femur. Traction was applied as well as internal rotation of the foot. Unfortunately however we are unable to obtain a reduction. The decision was made to therefore do an open reduction of the fracture prior to placing the intramedullary nail. Patient was then prepped and draped in the usual sterile fashion. Prior to incision a multidiscipline timeout was called. All in the room in agreement. A 10 cm long incision was made over the lateral aspect of the femur starting at the vastus ridge and extending distally. I dissected down subcutaneous tissues to the level of the fascia. Fascia was incised in line with the incision. Vastus lateralis musculature was elevated from posterior to anterior to expose the femur and the fracture site. There was a significant amount of fracture hematoma which was evacuated. The ends of the fracture site were then curetted out and exposed so we could visualize the fracture keying in. We then took a l ittle bit of traction off the leg as there was a slight gap between the bony fragments and placed a lion-jaw clamp across the fracture which was used to reduce the fracture. We were unable to grasp the lesser trochanter fragment which was located proximally and posteriorly. This was expected and should not compromise her long-term outcome. Having reduce the fracture we then made a 5 cm incision proximally in order to place her nail. This was templated out with fluoroscopy. The guidewire was then placed through this incision onto the tip of the greater trochanter. This was checked on the AP and lateral fluoroscopic views. We then drove the guidewire down the femur approximately 8 cm. The opening reamer was then placed over the top of the guidewire. Next the long ball-tipped guidewire was inserted down the femur and [address] at the superior pole of the patella. A 380 mm nail was felt to be the appropriate length. We then reamed up to a 12 mm diameter reamer which had no chatter. The largest nail we have available is 11 mm. The nail was then slid down over the top of the guidewire. We checked the position proximally to ensure we would end up with the center center position in the femoral head. The guide was then placed down through the previous lateral incision directly onto the bone. The guidewire was then drilled up into the femoral head into the cent er center position using fluoroscopy to guide this. It measured at 94 mm. I therefore elected to use a 90 mm helical blade. The opening drill was used followed by the step drill up into the femoral head. Helical blade was then placed up in the femoral head without difficulty. Excellent fixation was obtained proximally. At this point we reexposed the fracture site. We released the traction c ompletely off the leg and were able to compress the fracture. This gave us an anatomic reduction of the 2 main fragments. As stated above the lesser trochanter fragment was left alone. We then placed our distal cross locking screws using perfect circles technique. We first placed the dynamic screw. We had a little bit of difficulty because of the fracture table having space for the drill and the C arm to guide this. However we were able to get the drill across. We then measured and it came to 44 millimeters. A 46 mm screw was opened up and placed. The bite was not great however it was definitely bicortical. We then moved on to place the static screw again using perfect circles technique. This 1 had a good bite. At this point we reexposed the fracture site. Unfortunately we discovered that the fracture gap had widened because the distal fragment slid down on the nail while we were placing her distal cross locking screws. Therefore we went back to the cross locking screws and replaced the dynamic screw with a longer screw to give us a better bite of the far cortex. This 46 mm screw was switched out for a 50 mm screw. This did give us a better bite although it still was not great. The static screw was then removed and the fracture was dynamized. We checked the subtrochanteric femur fracture and we now had compressed it back to where it was supposed to be. We then made an new drill hole for the static cross locking screw which was placed without difficulty. At this point we irrigated out all of her wounds with copious amounts of normal saline. The fascia was closed with running 0 Vicryl. Subcutaneous layer was closed with 0 Vicryl. The deep dermal layer was closed with 2-0 Vicryl. Bonnie were used for the skin. 30 cc of half percent Marcaine with epinephrine was injected into the incision sites for postoperative pain control. 4 x 4's and Tegaderms were then placed for sterile dressing. Patient was awoke from anesthesia and transferred recovery room in stable condition. Postoperative course: Patient will be readmitted to the floor. She will be weightbearing as tolerated with a walker. Aspirin for DVT prophylaxis. She will need to resume her Parkinson's medication and will need to have fall precautions. I attest to the content of the Intraoperative Record and any orders documented therein. Any exceptions are noted below.
--- NOTE | 2021-04-19 13:35 | Operative Report ---
Post Operative Report Pre & Post Diagnosis Operation Date: 04/19/21 08:40 Pre-Op Diagnosis: Right Proximal Femur Fracture Post-Op Diagnosis: Right Proximal Femur Fracture I identified the patient and participated in the time-out.: Yes Procedure Operation Date: 04/19/21 08:40 Actual Procedures p Right Proximal Femur Fracture Serafin Placement(Right) - Nicolás Varela MD Surgeon Nicolás Varela MD Stock Unloader Mahendra Knutson MD; Yolanda Lyn PA-C Estimated Blood Loss 200 Findings Consistent with Post-Op Diagnosis Displaced Right Sub Trochanteric proximal femur fracture Specimens none Description of Procedure I was present during the entire procedure assisting with positioning, prepping, draping, wound retraction, wound closure and dressing application. Fellow also present. I served as an extra set of hands during the case. Please see Dr. Varela procedure note for specifics of the case. I attest to the content of the Intraoperative Record and any orders documented therein. Any exceptions are noted below.
[2021-04-19] MEDS ORDERED: diphenhydrAMINE 50 MG/ML VIAL IV PRN (13:36)
[2021-04-19] MEDS ORDERED: traMADol HCL 50 MG TABLET PO PRN (13:36)
[2021-04-19] MEDS ORDERED: METOCLOPRAMIDE HCL INJ 5 MG/ML 2 ML VIAL IV PRN (13:36)
[2021-04-19] MEDS ORDERED: ONDANSETRON INJ 2 MG/ML 2 ML VIAL IV PRN (13:36)
[2021-04-19] MEDS ORDERED: ALUMINUM/MAGNESIUM SUSP 30 ML UDC PO PRN (13:36)
--- NOTE | 2021-04-19 13:38 | Fluoroscopy Report ---
FL hip RT 2-3V CLINICAL HISTORY: RT TROCH NAIL COMPARISON STUDY: Right femur radiographs performed earlier today. FLUOROSCOPY TIME: 6 minutes. FLUOROSCOPIC IMAGES: 9 FINDINGS: Fluoroscopy was provided during internal fixation of the subtrochanteric region of the righ t femur with trochanteric nail and interlocking intramedullary karolyn. There are distal screws. Fracture alignment has significantly improved. Hardware is intact. There are no unexpected radiopaque foreign bodies. IMPRESSION: Fluoroscopy provided during internal fixation of the subtrochanteric fracture of the rig ht femur. ACT 112: Negative or not required by law. Electronically signed by: Scott Trujillo M.D. 04/19/2021 1:36 PM
[2021-04-19 14:25] LABS: Hemoglobin 7.2 g/dL (12.0-16.0)
--- NOTE | 2021-04-19 15:09 | Anesthesiology Progress Note ---
Date of Service April 19, 2021 Anesthesia Post Procedure Vital Signs Vital Signs: Temp Pulse Pulse Pulse Pulse Resp BP 04/19/21 14:45 48 L 14 04/19/21 14:35 36.1 C L 50 L 14 04/19/21 14:25 47 L 16 04/19/21 14:15 48 L 18 04/19/21 14:05 52 L 15 04/19/21 13:55 59 L 19 04/19/21 13:46 36.1 C L 64 16 04/19/21 09:30 53 L 04/19/21 08:22 36.7 C 53 L 20 04/19/21 08:00 36.6 C 51 L 18 04/19/21 07:49 36.5 C 58 L 18 04/19/21 06:57 54 L 04/19/21 06:25 36.5 C 18 04/19/21 05:30 49 L 17 131/54 L 04/19/21 05:00 48 L 17 134/54 L 04/19/21 04:30 47 L 19 127/50 L 04/19/21 03:30 47 L 24 151/57 H 04/19/21 03:00 48 L 16 164/58 H 04/19/21 02:30 50 L 20 160/67 H 04/19/21 02:00 50 L 21 159/69 H 04/19/21 00:46 04/19/21 00:31 41 L 18 171/97 H 04/19/21 00:17 41 L 16 04/18/21 23:59 36.5 C 52 L 18 157/64 H BP BP Pulse Ox Pulse Ox 04/19/21 14:45 108/46 L 100 04/19/21 14:35 123/48 L 100 04/19/21 14:25 117/45 L 100 04/19/21 14:15 116/46 L 100 04/19/21 14:05 119/45 L 100 04/19/21 13:55 119/54 L 100 04/19/21 13:46 123/60 100 04/19/21 09:30 04/19/21 08:22 148/55 H 100 04/19/21 08:00 144/74 H 98 04/19/21 07:49 154/67 H 98 04/19/21 06:57 04/19/21 06:25 154/67 H 98 98 04/19/21 05:30 98 04/19/21 05:00 98 04/19/21 04:30 98 04/19/21 03:30 98 04/19/21 03:00 97 04/19/21 02:30 99 04/19/21 02:00 93 04/19/21 00:46 85 L 04/19/21 00:31 100 04/19/21 00:17 99 04/18/21 23:59 94 Pain Intensity Right Leg: Pain Intensity: 1 Transfer of Care Handoff Completed per policy Notes Mental Status: alert / awake / arousable Patient Amnestic to Procedure: Yes Nausea / Vomiting: adequately controlled Pain: adequately controlled Airway Patency, RR, SpO2: stable & adequate BP & HR: stable & adequate Hydration State: stable & adequate Anesthetic Complications: no major complications apparent and Pt Satisfied with anesthetic care Notes: The patient tolerated the anesthesia well during the procedure. An Istat hgb was checked in the OR near the end of the procedure and hgb was found to be 6.8. The patient was soon extubated and brought to the PACU where a stat hgb sample was sent to the lab along with a type and cross for PRBC. The patient's hgb came back at 7.2. The patient was sleepy but easily arousable and comfortable. She has remained bradycardic throughout the perioperative period. Her blood pressure is slightly lower than preoperatively but she does not have significant hypotension. Her other vital signs are stable. The patient was discussed with Dr. Hunt who will follow her on the floor and he agrees with transfusing one unit PRBC. The PRBC infusion will be started in PACU and then the patient will go to the floor. Dr. Varela is aware that the patient will be receiving blood.
--- NOTE | 2021-04-19 15:11 | XRay Report ---
RIGHT FEMUR 2 VIEWS CLINICAL HISTORY: Postoperative examination. FINDINGS: AP and crosstable lateral views of the right femur are compared to study dated 04/19/2021. T he skeletal structures are osteopenic. There has been intertrochanteric and intramedullary nail fixat ion of a comminuted subtrochanteric fracture of the right femur. Near-anatomic alignment has been res tored. There is persistent medial displacement of the lesser trochanter. 2 cortical lag screws transf ix the distal end of the intramedullary nail. The orthopedic hardware appears intact. The right hip a nd knee joints are grossly maintained. The visualized right hemipelvis appears intact. Lumbosacral sp inal fusion hardware is partially visualized. Overlying soft tissue edema, subcutaneous gas, and skin clips are expected postoperative findings. IMPRESSION: Expected postoperative findings status post open reduction and internal fixation of the r ight proximal femur as above. Electronically signed by: Steve Lester M.D. 04/19/2021 3:10 PM
--- NOTE | 2021-04-19 15:49 | Operative Report ---
Post Operative Report Pre & Post Diagnosis Operation Date: 04/19/21 08:40 Pre-Op Diagnosis: Right Proximal Femur Fracture Post-Op Diagnosis: Right Proximal Femur Fracture I identified the patient and participated in the time-out.: Yes Procedure Operation Date: 04/19/21 08:40 Actual Procedures p Right Proximal Femur Fracture Serafin Placement(Right) - Nicolás Varela MD Surgeon Nicolás Morales MD Band Bias Machine Operator Mahendra Knutson MD and MARIO Lyn PA-C Estimated Blood Loss 200 Findings Consistent with Post-Op Diagnosis Specimens none Description of Procedure As per Dr. Varela's note, I assisted in prepping and draping instruments handling, certain parts of the procedure and wound closure. I attest to the content of the Intraoperative Record and any orders documented therein. Any exceptions are noted below.
[2021-04-19] MEDS: ACETAMINOPHEN 500 MG TAB PO SCH ×2 (16:32→23:13)
[2021-04-19] MEDS: SODIUM CHLORIDE 0.9% 1000ML 1,000 ML IV SCH (17:20)
[2021-04-19] MEDS: ceFAZolin 2000MG 2,000 MG/15 ML SYR IV SCH (17:50)
[2021-04-19] MEDS ORDERED: SODIUM CHLORIDE 0.9% 1000ML 500 ML IV ONE (18:08)
[2021-04-19 18:40] LABS: Hematocrit (blood only) 25.7 % (37-47); Hemoglobin 8.4 g/dL (12.0-16.0)
[2021-04-19] MEDS ORDERED: TRANEXAMIC ACID / 0.7% NACL 1,000 MG/100 ML BAG IV SCH (19:45)
--- NOTE | 2021-04-19 19:54 | Hospitalist Progress Note ---
Date of Service April 19, 2021 Assessment & Plan (1) Closed fracture of proximal end of right femur: Plan: s/p ORIF today with karolyn placement. EBL from OR ~200cc. Post-op hypothermia, acute blood loss anemia present. as below. (2) Acute blood loss anemia: (3) Hypertension: Plan: now with post-op hypotension 2nd to acute blood loss anemia (4) Hyperlipidemia: (5) Depression: (6) Constipation: (7) Dermatitis: (8) Coronary artery disease: (9) Parkinsons disease: (10) Fall: (11) Hypothermia, initial encounter: (12) Hypotension: Plan: 1. following unit #1 of PRBCs her SBP did not rise above 90. 2. I followed the unit of PRBCs with a 500cc NS bolus. 3. again SBP did not rise above 90-95 systolic. 4. repeat H/H post-transfusion in the low 8's. 5. elected to transfuse a 2nd unit of PRBCs. 6. serial H/H's. 7. HOLD all home BP meds. 8. follow UOP carefully. 9. BMP am. 10. despite h/o CAD patient endorsed no ischemic symptoms. 11. hypothermia - continue warming blanket. This is 2nd to acute blood loss anemia with resulting hypotension. All issues should improve with PRBCs. Continue telemetry. Daughters updated at bedside. total care time 60 minutes. this is above & beyond the time spent on admission activities earlier today. Admission and Anticipated Discharge Date Admission Date: April 19, 2021 Subjective was called by anesthesia following her ORIF of right femur fracture that patient was mildly hypotensive and a post-op Hb was just above 7. she was typed for 2 units of PRBCs. after speaking with anesthesia I asked them to start her blood transfusion in the PACU. upon arrival to the floor she was hypothermic with bear hugger in place. BPs were still low despite infusion of PRBCs. she was very sleepy - c/o right thigh/hip pain - but denied any dyspnea or chest pain. she was able to tell me where she was from and that she had several children. within a few minutes of my arrival 2 daughters did come to bedside. each had multiple questions about the day's events. Review of Systems Review of Systems: gen - fatigue, weakness cardio - no chest pain pulm - no dyspnea, no cough GI - no abdominal pain, vomiting, nausea musculo - right hip and thigh pain Physical Exam Physical Exam: general - pale, weak, easily falls asleep mouth - MM dry neck - no JVD heart - RRR, s1 s2, no murmur lungs - mildly decreased BS both bases with soft rales abd - soft NT ND BS+ ext - SCDs in place, pulses feet 2+ b/l skin - pallor psych - oriented x 2 Results & Data Results & Data ([facility]) Vital Signs (Past 12 Hours) Vital Signs Temp Pulse Pulse Pulse Resp BP BP 04/19/21 19:26 36.5 C 112 H 16 98/59 L 04/19/21 17:49 35.4 C L 04/19/21 17:19 34.3 C L 58 L 18 90/55 L 04/19/21 16:53 33.8 C L 04/19/21 16:51 34.8 C L 62 18 91/52 L 04/19/21 16:00 34.5 C L 102 H 18 128/63 04/19/21 15:54 34.5 C L 04/19/21 15:25 64 16 96/35 L 04/19/21 15:15 36.1 C L 60 14 103/44 L 04/19/21 15:10 36.1 C L 48 L 14 113/45 L 04/19/21 15:05 50 L 14 124/46 L 04/19/21 14:55 56 L 14 107/37 L 04/19/21 14:45 48 L 14 108/46 L 04/19/21 14:35 36.1 C L 50 L 14 123/48 L 04/19/21 14:25 47 L 16 117/45 L 04/19/21 14:15 48 L 18 116/46 L 04/19/21 14:05 52 L 15 119/45 L 04/19/21 13:55 59 L 19 119/54 L 04/19/21 13:46 36.1 C L 64 16 123/60 04/19/21 09:30 53 L 04/19/21 08:22 36.7 C 53 L 20 148/55 H 04/19/21 08:00 36.6 C 51 L 18 BP Pulse Ox 04/19/21 19:26 96 04/19/21 17:49 04/19/21 17:19 100 04/19/21 16:53 04/19/21 16:51 04/19/21 16:00 94 04/19/21 15:54 04/19/21 15:25 100 04/19/21 15:15 100 04/19/21 15:10 100 04/19/21 15:05 04/19/21 14:55 04/19/21 14:45 100 04/19/21 14:35 04/19/21 14:25 100 04/19/21 14:15 100 04/19/21 14:05 100 04/19/21 13:55 100 04/19/21 13:46 100 04/19/21 09:30 04/19/21 08:22 100 04/19/21 08:00 144/74 H 98 Laboratory Results preop Hb 11.4 postop Hb 7.2 Cr 0.9 operative note reviewed PG Care Time/CCT Total # of Minutes Spent Total Time Spent with Patient: Total time spent is greater than 50% in coordination of care (as documented) at patient's floor/unit and/or counseling patient: Prolonged Care Time Prolonged Care Time: Yes Total Prolonged Care Time: 60 Coding Level of Care Code None Diagnoses Closed fracture of proximal end of right femur S72.001A Hypertension I10 Hyperlipidemia E78.5 Depression F32.9 Constipation K59.00 Dermatitis L30.9 Acute blood loss anemia D62 Coronary artery disease I25.10 Parkinsons disease G20 Fall W19.XXXA Encounter type: initial encounter Hypothermia, initial encounter T68.XXXA Hypotension I95.9 Additional Codes Prolonged Care Time - Prolonged Care Time: Yes ([id number]) (1) Fall Encounter type: initial encounter Qualified Code(s): W19.XXXA - Unspecified fall, initial encounter
[2021-04-19] MEDS: DOCUSATE SODIUM 100 MG CAP PO SCH (20:25)
[2021-04-19] MEDS: SENNA 8.6 MG TAB PO SCH (20:25)
[2021-04-19] MEDS: ASPIRIN 81 MG ECTAB PO SCH (20:25)
[2021-04-19] MEDS: ENALAPRIL MALEATE 10 MG TAB PO SCH (20:27)
[2021-04-19] MEDS: DOCUSATE SODIUM/SENNA 50/8.6MG TAB PO SCH (20:28)
[2021-04-19] MEDS ORDERED: NON-FORMULARY MEDICATION (Aspirin 81 mg tablet) PO SCH (21:00)
[2021-04-19] MEDS ORDERED: QUINAPRIL 20 MG PO SCH (21:00)
[2021-04-19] MEDS: TRIAMCINOLONE ACET 0.1% CR 15 GM TUBE TOP SCH (23:14)
[2021-04-20 01:42] LABS: Hematocrit (blood only) 29.7 % (37-47); Hemoglobin 9.5 g/dL (12.0-16.0)
[2021-04-20] MEDS: ceFAZolin 2000MG 2,000 MG/15 ML SYR IV SCH (02:35)
[2021-04-20] MEDS: SODIUM CHLORIDE 0.9% 1000ML 1,000 ML IV SCH (04:15)
[2021-04-20] MEDS: ACETAMINOPHEN 500 MG TAB PO SCH ×3 (05:55→23:45)
[2021-04-20] MEDS ORDERED: dexAMETHasone 4 MG TAB PO SCH (08:00)
[2021-04-20] MEDS: ENALAPRIL MALEATE 10 MG TAB PO SCH (08:30)
[2021-04-20] MEDS: MULTIVITAMIN TAB PO SCH (08:30)
[2021-04-20] MEDS: ASPIRIN 81 MG ECTAB PO SCH ×2 (08:30→21:02)
[2021-04-20] MEDS: CARBIDOPA/LEVODOPA 25/100MG TAB PO SCH ×3 (08:30→21:00)
[2021-04-20] MEDS: SERTRALINE HCL 50 MG TABLET PO SCH (08:30)
[2021-04-20] MEDS: TRIAMCINOLONE ACET 0.1% CR 15 GM TUBE TOP SCH ×2 (08:30→20:59)
[2021-04-20] MEDS: ROSUVASTATIN CALCIUM 20 MG TAB PO SCH (08:30)
[2021-04-20] MEDS: DOCUSATE SODIUM 100 MG CAP PO SCH ×2 (08:30→21:02)
[2021-04-20] MEDS: METOPROLOL SUCC 25MG EXT REL TAB PO SCH (08:30)
[2021-04-20 08:44] LABS: Hemoglobin 9.4 g/dL (12.0-16.0); Mean Corpuscular Hemoglobin 29.7 pg (25-34); Mean Corpuscular Hgb Conc 32.4 g/dL (32-36); Mean Corpuscular Volume 91.8 fL (80-100); RDW Coefficient of Variation 14.2 % (11.5-14.5); RDW Standard Deviation 47.7 fL (36.4-46.3); Red Blood Count 3.16 M/uL (4.2-5.4); White Blood Count 12.86 K/uL (4.8-10.8)
[2021-04-20] MEDS ORDERED: hydroCHLOROthiazide 25 MG TAB PO SCH (09:00)
[2021-04-20] MEDS ORDERED: DOCUSATE CALCIUM PO SCH (09:00)
[2021-04-20] MEDS ORDERED: [UNRECOGNIZED DRUG - OTHER] PO SCH (09:00)
[2021-04-20 09:09] LABS: Basophils # (auto) 0.01 K/uL (0-0.2); Basophils % (auto) 0.1 %; Eosinophils # (auto) 0.01 K/uL (0-0.5); Eosinophils % (auto) 0.1 %; Immature Granulocytes # (auto) 0.08 K/uL (0.00-0.02); Immature Granulocytes % (auto) 0.6 %; Lymphocytes # (auto) 1.27 K/uL (1.2-3.4); Lymphocytes % (auto) 9.9 %; Monocytes # (auto) 1.52 K/uL (0.11-0.59); Monocytes % (auto) 11.8 %; Neutrophils # (auto) 9.97 K/uL (1.4-6.5); Neutrophils % (auto) 77.5 %; Platelet Count 94 K/uL (130-400)
[2021-04-20 09:11] LABS: Platelet Estimate Decreased (Normal)
[2021-04-20 09:39] LABS: Albumin Globulin Ratio 0.9 (0.9-2); Albumin Level 2.3 gm/dl (3.4-5.0); BUN Creatinine Ratio 20.1 (10-20); Bilirubin,Total 0.5 mg/dl (0.2-1); Creatinine Clr Calc Pharmacy 23.6 ml/min; Est GFR (African American) 33.3 ml/min; Est GFR (Non-African American) 28.7 ml/min; Globulin 2.6 gm/dl (2.5-4.0); Magnesium 1.9 mg/dl (1.8-2.4); Potassium 4.5 mmol/L (3.5-5.1); Total Protein 4.9 gm/dl (6.4-8.2)
--- NOTE | 2021-04-20 09:57 | Orthopedic Progress Note ---
Date of Service April 20, 2021 Assessment & Plan (1) Closed fracture of proximal end of right femur: Plan: S/P ORIF R hip fracture POD 1 Post Op-anemia, hypotensive, hypothermia---followed by medicine service. Hgb this am improved to 9.5. BP and temp improving. Right hip dressing remain intact and dry. Check daily, change only if saturated. PT/OT: WBAT with walker Ice to right hip prn for pain and swelling; Pain medication per primary service ASA 81mg BID for DVT prophylaxis x 6wks, B knee high teds until seen in office (can remove to bath and for 4hrs daily), SCDs in house Follow-up with Dr Varela on 05-04 (Friday) at 1:30pm at [facility]. Call the office at [phone] with any questions or concerns. Present on Admission?: Yes Admission and Anticipated Discharge Date Admission Date: April 19, 2021 Subjective Patient sitting up in bed. Alert. Denies pain at rest in hip. But states her back hurts some, hx of spinal stenosis. Taking tylenol. Hasnt gotten out of bed yet. Denies lightheadedness, dizziness, N/V, CP, SOB. Poor appetite. Per notes, had 2 units PRBCs secondary to post-op blood loss anemia, hypotensive, and hypothermia. Using warming blanket. BP and temp improving this am. HGB improved. Physical Exam Musculoskeletal: R LE exam: Right hip/femur dressings with 4x4s and tegaderm intact without saturation. Painless log rolling right hip. Tolerates gentle PROM right knee without knee pain. NV intact R LE. 5/5 R EHL, TA, gastroc strength. Sensation intact to light touch. Palpable DP and PT pulses. Neg homans, B calves soft, B SCD donned. Results & Data ([facility]) Vital Signs (Past 12 Hours) Vital Signs Temp Pulse Pulse Pulse Resp BP BP 04/20/21 07:53 79 04/20/21 07:49 36.7 C 100 H 18 04/20/21 03:42 88 16 101/59 L 04/20/21 03:04 36.6 C 88 16 92/55 L 04/20/21 01:02 86 04/19/21 23:32 36.5 C 94 H 16 90/53 L 04/19/21 22:36 36.5 C 94 H 16 93/56 L BP Pulse Ox 04/20/21 07:53 04/20/21 07:49 104/59 L 97 04/20/21 03:42 04/20/21 03:04 98 04/20/21 01:02 04/19/21 23:32 97 04/19/21 22:36 97 Laboratory Results 04/20/21 04/20/21 04/20/21 Range/Units 08:09 08:09 08:09 WBC 12.86 H (4.8-10.8) K/uL RBC 3.16 L (4.2-5.4) M/uL Hgb 9.4 L (12.0-16.0) g/dL POC Hgb (12.0-16.0) g/dl Hct 29.0 L (37-47) % POC Hct (37-47) % MCV 91.8 (80-100) fL MCH 29.7 (25-34) pg MCHC 32.4 (32-36) g/dL RDW Std Deviation 47.7 H (36.4-46.3) fL RDW Coeff of Alexandru 14.2 (11.5-14.5) % Plt Count 94 L (130-400) K/uL MPV 11.0 H (7.4-10.4) fL Immature Gran % (Auto) 0.6 % Neut % (Auto) 77.5 % Lymph % (Auto) 9.9 % [place] % (Auto) 11.8 % Eos % (Auto) 0.1 % Baso % (Auto) 0.1 % Neut # (Auto) 9.97 H (1.4-6.5) K/uL Lymph # (Auto) 1.27 (1.2-3.4) K/uL [place] # (Auto) 1.52 H (0.11-0.59) K/uL Eos # (Auto) 0.01 (0-0.5) K/uL Baso # (Auto) 0.01 (0-0.2) K/uL Immature Gran # (Auto) 0.08 H (0.00-0.02) K/uL Platelet Estimate Decreased L (Normal) POC Sodium (135-144) mmol/L Sodium (136-145) mmol/L POC Potassium (3.3-5.0) mmol/L Potassium (3.5-5.1) mmol/L POC Chloride (101-112) mmol/L Chloride (98-107) mmol/L Carbon Dioxide (21-32) mmol/L POC Total CO2 (24-31) mmol/L Anion Gap (3-11) POC Anion Gap (16-25) mmol/L POC BUN (7-18) mg/dl BUN (7-18) mg/dl Creatinine (0.6-1.2) mg/dl POC Creatinine (0.6-1.3) mg/dl Est Cr Clr Drug Dosing ml/min Est GFR ( Amer) ml/min Est GFR (Non-Af Amer) ml/min BUN/Creatinine Ratio (10-20) Glucose (70-99) mg/dl POC Glucose (other) (70-99) mg/dl Calcium (8.5-10.1) mg/dl POC Ioniz Calcium Cristian (1.12-1.32) mmol/l Magnesium (1.8-2.4) mg/dl Total Bilirubin (0.2-1) mg/dl AST (15-37) U/L ALT (12-78) U/L Alkaline Phosphatase (45-117) U/L Total Protein (6.4-8.2) gm/dl Albumin (3.4-5.0) gm/dl Globulin (2.5-4.0) gm/dl Albumin/Globulin Ratio (0.9-2) Vitamin B12 Pending 25-OH Vitamin D Total 34.7 (30-100) ng/ml Blood Type Blood Type Recheck Antibody Screen Crossmatch 04/20/21 04/20/21 04/19/21 Range/Units 08:09 01:30 18:20 WBC (4.8-10.8) K/uL RBC (4.2-5.4) M/uL Hgb 9.5 L 8.4 L (12.0-16.0) g/dL POC Hgb (12.0-16.0) g/dl Hct 29.7 L 25.7 L (37-47) % POC Hct (37-47) % MCV (80-100) fL MCH (25-34) pg MCHC (32-36) g/dL RDW Std Deviation (36.4-46.3) fL RDW Coeff of Alexandru (11.5-14.5) % Plt Count (130-400) K/uL MPV (7.4-10.4) fL Immature Gran % (Auto) % Neut % (Auto) % Lymph % (Auto) % [place] % (Auto) % Eos % (Auto) % Baso % (Auto) % Neut # (Auto) (1.4-6.5) K/uL Lymph # (Auto) (1.2-3.4) K/uL [place] # (Auto) (0.11-0.59) K/uL Eos # (Auto) (0-0.5) K/uL Baso # (Auto) (0-0.2) K/uL Immature Gran # (Auto) (0.00-0.02) K/uL Platelet Estimate (Normal) POC Sodium (135-144) mmol/L Sodium 144 (136-145) mmol/L POC Potassium (3.3-5.0) mmol/L Potassium 4.5 (3.5-5.1) mmol/L POC Chloride (101-112) mmol/L Chloride 115 H (98-107) mmol/L Carbon Dioxide 23 (21-32) mmol/L POC Total CO2 (24-31) mmol/L Anion Gap 6.0 (3-11) POC Anion Gap (16-25) mmol/L POC BUN (7-18) mg/dl BUN 32 H (7-18) mg/dl Creatinine 1.58 H D (0.6-1.2) mg/dl POC Creatinine (0.6-1.3) mg/dl Est Cr Clr Drug Dosing 23.6 ml/min Est GFR ( Amer) 33.3 ml/min Est GFR (Non-Af Amer) 28.7 ml/min BUN/Creatinine Ratio 20.1 H (10-20) Glucose 126 H (70-99) mg/dl POC Glucose (other) (70-99) mg/dl Calcium 7.0 L D (8.5-10.1) mg/dl POC Ioniz Calcium Cristian (1.12-1.32) mmol/l Magnesium 1.9 (1.8-2.4) mg/dl Total Bilirubin 0.5 (0.2-1) mg/dl AST 24 (15-37) U/L ALT 17 (12-78) U/L Alkaline Phosphatase 47 (45-117) U/L Total Protein 4.9 L D (6.4-8.2) gm/dl Albumin 2.3 L (3.4-5.0) gm/dl Globulin 2.6 (2.5-4.0) gm/dl Albumin/Globulin Ratio 0.9 (0.9-2) Vitamin B12 25-OH Vitamin D Total (30-100) ng/ml Blood Type Blood Type Recheck Antibody Screen Crossmatch 04/19/21 04/19/21 04/19/21 Range/Units 14:08 13:59 13:03 WBC (4.8-10.8) K/uL RBC (4.2-5.4) M/uL Hgb 7.2 L D (12.0-16.0) g/dL POC Hgb 6.8 L* (12.0-16.0) g/dl Hct 23.0 L (37-47) % POC Hct 20 L* (37-47) % MCV (80-100) fL MCH (25-34) pg MCHC (32-36) g/dL RDW Std Deviation (36.4-46.3) fL RDW Coeff of Alexandru (11.5-14.5) % Plt Count (130-400) K/uL MPV (7.4-10.4) fL Immature Gran % (Auto) % Neut % (Auto) % Lymph % (Auto) % [place] % (Auto) % Eos % (Auto) % Baso % (Auto) % Neut # (Auto) (1.4-6.5) K/uL Lymph # (Auto) (1.2-3.4) K/uL [place] # (Auto) (0.11-0.59) K/uL Eos # (Auto) (0-0.5) K/uL Baso # (Auto) (0-0.2) K/uL Immature Gran # (Auto) (0.00-0.02) K/uL Platelet Estimate (Normal) POC Sodium 140 (135-144) mmol/L Sodium (136-145) mmol/L POC Potassium 4.0 (3.3-5.0) mmol/L Potassium (3.5-5.1) mmol/L POC Chloride 105 (101-112) mmol/L Chloride (98-107) mmol/L Carbon Dioxide (21-32) mmol/L POC Total CO2 22 L (24-31) mmol/L Anion Gap (3-11) POC Anion Gap 18.0 (16-25) mmol/L POC BUN 22 H (7-18) mg/dl BUN (7-18) mg/dl Creatinine (0.6-1.2) mg/dl POC Creatinine 0.9 (0.6-1.3) mg/dl Est Cr Clr Drug Dosing ml/min Est GFR ( Amer) ml/min Est GFR (Non-Af Amer) ml/min BUN/Creatinine Ratio (10-20) Glucose (70-99) mg/dl POC Glucose (other) 228 H (70-99) mg/dl Calcium (8.5-10.1) mg/dl POC Ioniz Calcium Cristian 1.17 (1.12-1.32) mmol/l Magnesium (1.8-2.4) mg/dl Total Bilirubin (0.2-1) mg/dl AST (15-37) U/L ALT (12-78) U/L Alkaline Phosphatase (45-117) U/L Total Protein (6.4-8.2) gm/dl Albumin (3.4-5.0) gm/dl Globulin (2.5-4.0) gm/dl Albumin/Globulin Ratio (0.9-2) Vitamin B12 25-OH Vitamin D Total (30-100) ng/ml Blood Type Blood Type Recheck O Positive Antibody Screen Crossmatch 04/19/21 Range/Units 06:39 WBC (4.8-10.8) K/uL RBC (4.2-5.4) M/uL Hgb (12.0-16.0) g/dL POC Hgb (12.0-16.0) g/dl Hct (37-47) % POC Hct (37-47) % MCV (80-100) fL MCH (25-34) pg MCHC (32-36) g/dL RDW Std Deviation (36.4-46.3) fL RDW Coeff of Alexandru (11.5-14.5) % Plt Count (130-400) K/uL MPV (7.4-10.4) fL Immature Gran % (Auto) % Neut % (Auto) % Lymph % (Auto) % [place] % (Auto) % Eos % (Auto) % Baso % (Auto) % Neut # (Auto) (1.4-6.5) K/uL Lymph # (Auto) (1.2-3.4) K/uL [place] # (Auto) (0.11-0.59) K/uL Eos # (Auto) (0-0.5) K/uL Baso # (Auto) (0-0.2) K/uL Immature Gran # (Auto) (0.00-0.02) K/uL Platelet Estimate (Normal) POC Sodium (135-144) mmol/L Sodium (136-145) mmol/L POC Potassium (3.3-5.0) mmol/L Potassium (3.5-5.1) mmol/L POC Chloride (101-112) mmol/L Chloride (98-107) mmol/L Carbon Dioxide (21-32) mmol/L POC Total CO2 (24-31) mmol/L Anion Gap (3-11) POC Anion Gap (16-25) mmol/L POC BUN (7-18) mg/dl BUN (7-18) mg/dl Creatinine (0.6-1.2) mg/dl POC Creatinine (0.6-1.3) mg/dl Est Cr Clr Drug Dosing ml/min Est GFR ( Amer) ml/min Est GFR (Non-Af Amer) ml/min BUN/Creatinine Ratio (10-20) Glucose (70-99) mg/dl POC Glucose (other) (70-99) mg/dl Calcium (8.5-10.1) mg/dl POC Ioniz Calcium Cristian (1.12-1.32) mmol/l Magnesium (1.8-2.4) mg/dl Total Bilirubin (0.2-1) mg/dl AST (15-37) U/L ALT (12-78) U/L Alkaline Phosphatase (45-117) U/L Total Protein (6.4-8.2) gm/dl Albumin (3.4-5.0) gm/dl Globulin (2.5-4.0) gm/dl Albumin/Globulin Ratio (0.9-2) Vitamin B12 25-OH Vitamin D Total (30-100) ng/ml Blood Type O Positive Blood Type Recheck Antibody Screen NEGATIVE Crossmatch See Detail
--- NOTE | 2021-04-20 13:44 | Hospitalist Progress Note ---
Date of Service April 20, 2021 Assessment & Plan (1) Closed fracture of proximal end of right femur: Plan: POD #1 s/p ORIF with long karolyn. Complicated by post-op hypothermia, FREDI, and acute blood loss anemia. Appreciate ortho assistance. asa 81mg BID for DVT proph. 25-OH vit D level wnl but would keep on 2000 IU vit D standing. (2) Acute blood loss anemia: Plan: 2nd to perioperative blood loss s/p 2 units PRBCs repeat H/H stable today CBC am (3) Hypertension: Plan: now with post-op hypotension 2nd to acute blood loss anemia BPs improved (4) Hyperlipidemia: (5) Depression: (6) Constipation: Plan: senna with miralax (7) Dermatitis: (8) Coronary artery disease: Plan: no ischemic symptoms had stents years ago in [facility] (9) Parkinsons disease: Plan: sinemet (10) Fall: Plan: accidental b12 level wnl (11) Hypothermia, initial encounter: Plan: 2nd to hypotension/acute blood loss anemia resolved (12) Hypotension: Plan: resolving (13) FREDI (acute kidney injury): Plan: ATN 2nd to hypotension/blood loss IVF bmp am supportive care Plan: 1. restart IVF - 60cc/hr isotonic fluid x 1 liter 2. cbc, bmp am 3. HOLD all BP meds (metoprolol, SREE, HCTZ) 4. stop dilaudid 5. bowel regimen for constipation 6. PT, OT son was updated by phone this evening Admission and Anticipated Discharge Date Admission Date: April 19, 2021 Subjective tele overnight wnl pt feeling much better today more energy eating ~50% meals no significant flatus passage yet but no abd pain no dyspnea just right leg pain Review of Systems Review of Systems: gen - no fever CV - no chest pain pulm - no cough abd - no nausea or emesis Physical Exam Physical Exam: general - looks better today, more sprightly mouth - MMM today neck - no JVD heart - RRR, s1 s2, no murmur lungs - mildly decreased BS both bases but no rales/wheeze abd - soft NT ND BS+ ext - pulses feet 2+ b/l skin - pallor but improved from yesterday psych - oriented x 3 musculo - dressings intact Right thigh; right thigh swelling Results & Data Results & Data ([facility]) Vital Signs (Past 12 Hours) Vital Signs Temp Pulse Pulse Pulse Resp BP BP 04/20/21 07:53 79 04/20/21 07:49 36.7 C 100 H 18 104/59 L 04/20/21 03:42 88 16 101/59 L 04/20/21 03:04 36.6 C 88 16 92/55 L Pulse Ox 04/20/21 07:53 04/20/21 07:49 97 04/20/21 03:42 04/20/21 03:04 98 Laboratory Results Laboratory Results - last 24 hr 04/19/21 04/19/21 04/19/21 06:39 13:59 14:08 WBC RBC Hgb 7.2 L D Hct 23.0 L MCV MCH MCHC RDW Std Deviation RDW Coeff of Alexandru Plt Count MPV Immature Gran % (Auto) Neut % (Auto) Lymph % (Auto) [place] % (Auto) Eos % (Auto) Baso % (Auto) Neut # (Auto) Lymph # (Auto) [place] # (Auto) Eos # (Auto) Baso # (Auto) Immature Gran # (Auto) Platelet Estimate Sodium Potassium Chloride Carbon Dioxide Anion Gap BUN Creatinine Est Cr Clr Drug Dosing Est GFR ( Amer) Est GFR (Non-Af Amer) BUN/Creatinine Ratio Glucose Calcium Magnesium Total Bilirubin AST ALT Alkaline Phosphatase Total Protein Albumin Globulin Albumin/Globulin Ratio Vitamin B12 25-OH Vitamin D Total Blood Type O Positive Blood Type Recheck O Positive Antibody Screen NEGATIVE Crossmatch See Detail 04/19/21 04/20/21 04/20/21 18:20 01:30 08:09 WBC RBC Hgb 8.4 L 9.5 L Hct 25.7 L 29.7 L MCV MCH MCHC RDW Std Deviation RDW Coeff of Alexandru Plt Count MPV Immature Gran % (Auto) Neut % (Auto) Lymph % (Auto) [place] % (Auto) Eos % (Auto) Baso % (Auto) Neut # (Auto) Lymph # (Auto) [place] # (Auto) Eos # (Auto) Baso # (Auto) Immature Gran # (Auto) Platelet Estimate Sodium 144 Potassium 4.5 Chloride 115 H Carbon Dioxide 23 Anion Gap 6.0 BUN 32 H Creatinine 1.58 H D Est Cr Clr Drug Dosing 23.6 Est GFR ( Amer) 33.3 Est GFR (Non-Af Amer) 28.7 BUN/Creatinine Ratio 20.1 H Glucose 126 H Calcium 7.0 L D Magnesium 1.9 Total Bilirubin 0.5 AST 24 ALT 17 Alkaline Phosphatase 47 Total Protein 4.9 L D Albumin 2.3 L Globulin 2.6 Albumin/Globulin Ratio 0.9 Vitamin B12 25-OH Vitamin D Total Blood Type Blood Type Recheck Antibody Screen Crossmatch 04/20/21 04/20/21 04/20/21 08:09 08:09 08:09 WBC 12.86 H RBC 3.16 L Hgb 9.4 L Hct 29.0 L MCV 91.8 MCH 29.7 MCHC 32.4 RDW Std Deviation 47.7 H RDW Coeff of Alexandru 14.2 Plt Count 94 L MPV 11.0 H Immature Gran % (Auto) 0.6 Neut % (Auto) 77.5 Lymph % (Auto) 9.9 [place] % (Auto) 11.8 Eos % (Auto) 0.1 Baso % (Auto) 0.1 Neut # (Auto) 9.97 H Lymph # (Auto) 1.27 [place] # (Auto) 1.52 H Eos # (Auto) 0.01 Baso # (Auto) 0.01 Immature Gran # (Auto) 0.08 H Platelet Estimate Decreased L Sodium Potassium Chloride Carbon Dioxide Anion Gap BUN Creatinine Est Cr Clr Drug Dosing Est GFR ( Amer) Est GFR (Non-Af Amer) BUN/Creatinine Ratio Glucose Calcium Magnesium Total Bilirubin AST ALT Alkaline Phosphatase Total Protein Albumin Globulin Albumin/Globulin Ratio Vitamin B12 460 25-OH Vitamin D Total 34.7 Blood Type Blood Type Recheck Antibody Screen Crossmatch PG Care Time/CCT Total # of Minutes Spent Total Time Spent with Patient: Total time spent is greater than 50% in coordination of care (as documented) at patient's floor/unit and/or counseling patient: Coding Level of Care Code 69439 Subseq Hosp Care Lvl 3 Diagnoses Closed fracture of proximal end of right femur S72.001A Acute blood loss anemia D62 Hypertension I10 Hyperlipidemia E78.5 Depression F32.9 Constipation K59.00 Dermatitis L30.9 Coronary artery disease I25.10 Parkinsons disease G20 Fall W19.XXXA Encounter type: initial encounter Hypothermia, initial encounter T68.XXXA Hypotension I95.9 FREDI (acute kidney injury) N17.9 (1) Fall Encounter type: initial encounter Qualified Code(s): W19.XXXA - Unspecified fall, initial encounter
[2021-04-20] MEDS ORDERED: SODIUM CHLORIDE 0.9% 1000ML 1,000 ML IV SCH (13:45)
--- NOTE | 2021-04-20 16:22 | Electrocardiogram Report ---
Test Reason : Blood Pressure : / mmHG Vent. Rate : 094 BPM Atrial Rate : 094 BPM P-R Int : 136 ms QRS Dur : 078 ms QT Int : 360 ms P-R-T Axes : 106 -05 050 degrees QTc Int : 450 ms Poor data quality, interpretation may be adversely affected Normal sinus rhythm Poor R wave progression, consider anterior OR vs. lead placement vs. LVH Abnormal ECG When compared with ECG of 19-APR-2021 00:03, Vent. rate has increased BY 41 BPM Nonspecific T wave abnormality now evident in Lateral leads Confirmed by Vincent Peacock ([id number]) on 04/20/2021 4:22:22 PM Referred By: REFERRED SELF Confirmed By:Vincent Peacock
[2021-04-20] MEDS ORDERED: HYDROmorphone INJ 0.5 MG/0.5 ML SYR IV PRN (20:36)
[2021-04-20] MEDS: SENNA 8.6 MG TAB PO SCH (21:00)
[2021-04-20] MEDS: DOCUSATE SODIUM/SENNA 50/8.6MG TAB PO SCH (21:01)
[2021-04-20] MEDS: POLYETHYLENE (MIRALAX) 17 GM PACK PO SCH (21:05)
[2021-04-21] MEDS: ACETAMINOPHEN 500 MG TAB PO SCH ×3 (06:16→21:22)
[2021-04-21] MEDS: ASPIRIN 81 MG ECTAB PO SCH ×2 (08:12→21:19)
[2021-04-21] MEDS: DOCUSATE SODIUM 100 MG CAP PO SCH ×2 (08:13→21:19)
[2021-04-21] MEDS: MULTIVITAMIN TAB PO SCH (08:13)
[2021-04-21] MEDS: ROSUVASTATIN CALCIUM 20 MG TAB PO SCH (08:13)
[2021-04-21] MEDS: CARBIDOPA/LEVODOPA 25/100MG TAB PO SCH ×3 (08:13→21:20)
[2021-04-21] MEDS: SERTRALINE HCL 50 MG TABLET PO SCH (08:13)
[2021-04-21] MEDS: POLYETHYLENE (MIRALAX) 17 GM PACK PO SCH ×2 (08:13→21:18)
[2021-04-21] MEDS: TRIAMCINOLONE ACET 0.1% CR 15 GM TUBE TOP SCH ×2 (08:14→21:18)
[2021-04-21 08:18] LABS: Hematocrit (blood only) 25.5 % (37-47); Hemoglobin 8.1 g/dL (12.0-16.0); Mean Corpuscular Hemoglobin 29.3 pg (25-34); Mean Corpuscular Hgb Conc 31.8 g/dL (32-36); Mean Corpuscular Volume 92.4 fL (80-100); RDW Coefficient of Variation 14.2 % (11.5-14.5); RDW Standard Deviation 47.8 fL (36.4-46.3); Red Blood Count 2.76 M/uL (4.2-5.4); White Blood Count 12.64 K/uL (4.8-10.8)
[2021-04-21 08:43] LABS: Mean Platelet Volume 11.4 fL (7.4-10.4); Platelet Count 78 K/uL (130-400); Platelet Estimate Decreased (Normal)
[2021-04-21 08:48] LABS: BUN Creatinine Ratio 24.3 (10-20); Calcium 7.1 mg/dl (8.5-10.1); Creatinine Clr Calc Pharmacy 31.7 ml/min; Est GFR (African American) 46.4 ml/min; Potassium 3.9 mmol/L (3.5-5.1)
[2021-04-21] MEDS ORDERED: bisacodyL 10 MG SUPP PR STA (16:41)
[2021-04-21 17:46] LABS: Hematocrit (blood only) 26.8 % (37-47); Hemoglobin 8.7 g/dL (12.0-16.0)
[2021-04-21] MEDS: LIDOCAINE 5% 1 PATCH TD SCH (18:30)
--- NOTE | 2021-04-21 18:36 | XRay Report ---
XR ribs RT min 2V w CXR1V CLINICAL HISTORY: lower right rib pain; recent fall COMPARISON: Chest radiograph April 19, 2021. FINDINGS: Incidental note is made of spine fusion hardware, partially imaged. There is an old proxim al right humeral fracture. There is no pneumothorax or pleural effusion. Mild interstitial thickening is unchanged. Cardiomegaly is noted. No acute right rib fractures are identified. IMPRESSION: No pneumothorax. No acute right rib fractures identified. ACT 112: Negative or not required by law. Electronically signed by: Scott Trujillo M.D. 04/21/2021 6:34 PM
[2021-04-21] MEDS: SENNA 8.6 MG TAB PO SCH (21:19)
[2021-04-21] MEDS: DOCUSATE SODIUM/SENNA 50/8.6MG TAB PO SCH (21:20)
--- NOTE | 2021-04-21 22:50 | Hospitalist Progress Note ---
Date of Service April 21, 2021 Assessment & Plan (1) Closed fracture of proximal end of right femur: Plan: POD #2 s/p ORIF with long karolyn. Complicated by post-op hypothermia, FREDI, and acute blood loss anemia. All stable and/or resolved. Appreciate ortho assistance. cont asa 81mg BID for DVT proph. 25-OH vit D level wnl but would keep on 2000 IU vit D standing. (2) Acute blood loss anemia: Plan: 2nd to perioperative blood loss s/p 2 units PRBCs repeat H/H this am lower than yesterday, but H/H late in the day today are improved. [id number] would get fecal occult blood to ensure no GI losses cbc in am (3) Hypertension: Plan: now with post-op hypotension 2nd to acute blood loss anemia BPs improved cont to hold BP meds (4) Hyperlipidemia: (5) Depression: (6) Constipation: Plan: senna with miralax still ongoing dulcolax suppos x 1 (7) Dermatitis: (8) Coronary artery disease: Plan: no ischemic symptoms had stents years ago in [facility] (9) Parkinsons disease: Plan: sinemet (10) Fall: Plan: accidental b12 level wnl (11) Hypothermia, initial encounter: Plan: 2nd to hypotension/acute blood loss anemia perioperatively resolved (12) Hypotension: Plan: resolved (13) FREDI (acute kidney injury): Plan: ATN 2nd to hypotension/blood loss resolving Plan: lower right costal pain - check rib series, r/o Fx lidoderm patches q12h prn cont schedule tylenol 1gm TID son was updated at bedside today progressing cont PT/OT Admission and Anticipated Discharge Date Admission Date: April 19, 2021 Subjective patient sitting in bed during the visit. son at bedside. she has been tired today. she c/o mild right lower costal margin pain. no pleuritic pain. no true flank pain. no back pain. denies abd pain. eating fair at best. did work with PT today and did decently. tele normal overnight. no BM or flatus yet. Review of Systems Constitutional: + fatigue; no fever and no chills Respiratory: no dyspnea and no dyspnea on exertion Cardiovascular: no chest pain Gastrointestinal: no abdominal pain, no nausea and no vomiting Physical Exam Physical Exam: general - NAD, looks good to me mouth - MMM neck - no JVD heart - RRR, s1 s2, no murmur lungs - mildly decreased BS both bases but no rales/wheeze abd - soft NT ND BS+ ext - pulses feet 2+ b/l chest - tender lower right costal margin over 11th/12th ribs psych - oriented x 3 musculo - dressings intact Right thigh; right thigh swelling unchanged back - nontender paraspinal areas b/l lumbar area Results & Data Results & Data ([facility]) Vital Signs (Past 12 Hours) Vital Signs Temp Pulse Pulse Pulse Resp BP BP 04/21/21 19:19 36.8 C 70 16 117/56 L 04/21/21 15:37 36.5 C 55 L 18 119/57 L 04/21/21 14:50 66 04/21/21 11:56 36.8 C 62 18 128/55 L Pulse Ox 04/21/21 19:19 95 04/21/21 15:37 95 04/21/21 14:50 04/21/21 11:56 96 Laboratory Results Laboratory Results - last 24 hr 04/21/21 04/21/21 04/21/21 07:51 07:51 17:32 WBC 12.64 H RBC 2.76 L Hgb 8.1 L 8.7 L Hct 25.5 L 26.8 L MCV 92.4 MCH 29.3 MCHC 31.8 L RDW Std Deviation 47.8 H RDW Coeff of Alexandru 14.2 Plt Count 78 L MPV 11.4 H Platelet Estimate Decreased L Sodium 142 Potassium 3.9 Chloride 113 H Carbon Dioxide 26 Anion Gap 3.0 BUN 29 H Creatinine 1.20 D Est Cr Clr Drug Dosing 31.7 Est GFR ( Amer) 46.4 Est GFR (Non-Af Amer) 40.0 BUN/Creatinine Ratio 24.3 H Glucose 90 Calcium 7.1 L Total Creatine Kinase 636 H PG Care Time/CCT Total # of Minutes Spent Total Time Spent with Patient: Total time spent is greater than 50% in coordination of care (as documented) at patient's floor/unit and/or counseling patient: Coding Level of Care Code 79865 Subseq Hosp Care Lvl 3 Diagnoses Closed fracture of proximal end of right femur S72.001A Acute blood loss anemia D62 Hypertension I10 Hyperlipidemia E78.5 Depression F32.9 Constipation K59.00 Dermatitis L30.9 Coronary artery disease I25.10 Parkinsons disease G20 Fall W19.XXXA Encounter type: initial encounter Hypothermia, initial encounter T68.XXXA Hypotension I95.9 FREDI (acute kidney injury) N17.9 (1) Fall Encounter type: initial encounter Qualified Code(s): W19.XXXA - Unspecified fall, initial encounter
[2021-04-22] MEDS: ACETAMINOPHEN 500 MG TAB PO SCH ×3 (04:53→21:06)
[2021-04-22] MEDS: CARBIDOPA/LEVODOPA 25/100MG TAB PO SCH ×3 (07:49→20:25)
[2021-04-22] MEDS: POLYETHYLENE (MIRALAX) 17 GM PACK PO SCH ×2 (07:49→20:23)
[2021-04-22] MEDS: ASPIRIN 81 MG ECTAB PO SCH ×2 (07:49→20:26)
[2021-04-22] MEDS: DOCUSATE SODIUM 100 MG CAP PO SCH (07:49)
[2021-04-22] MEDS: ROSUVASTATIN CALCIUM 20 MG TAB PO SCH (07:50)
[2021-04-22] MEDS: SERTRALINE HCL 50 MG TABLET PO SCH (07:50)
[2021-04-22] MEDS: TRIAMCINOLONE ACET 0.1% CR 15 GM TUBE TOP SCH ×2 (07:50→20:28)
[2021-04-22] MEDS: MULTIVITAMIN TAB PO SCH (07:50)
[2021-04-22] MEDS: LIDOCAINE 5% 1 PATCH TD SCH (07:50)
[2021-04-22 09:00] LABS: Hematocrit (blood only) 25.8 % (37-47); Hemoglobin 8.5 g/dL (12.0-16.0); Mean Corpuscular Hemoglobin 30.1 pg (25-34); Mean Corpuscular Hgb Conc 32.9 g/dL (32-36); Mean Corpuscular Volume 91.5 fL (80-100); RDW Coefficient of Variation 13.8 % (11.5-14.5); RDW Standard Deviation 46.6 fL (36.4-46.3); Red Blood Count 2.82 M/uL (4.2-5.4); White Blood Count 11.52 K/uL (4.8-10.8)
[2021-04-22 09:05] LABS: Mean Platelet Volume 10.2 fL (7.4-10.4); Platelet Count 95 K/uL (130-400)
[2021-04-22 09:30] LABS: BUN Creatinine Ratio 25.9 (10-20); Calcium 7.7 mg/dl (8.5-10.1); Creatinine Clr Calc Pharmacy 43.1 ml/min; Est GFR (African American) 65.7 ml/min; Est GFR (Non-African American) 56.7 ml/min; Potassium 3.7 mmol/L (3.5-5.1)
[2021-04-22] MEDS: CHOLECALCIFEROL 1,000 UNITS 25 MCG TAB PO SCH (10:59)
--- NOTE | 2021-04-22 13:29 | Hospitalist Progress Note ---
Date of Service April 22, 2021 Assessment & Plan (1) Closed fracture of proximal end of right femur: Plan: POD #3 s/p ORIF with long karolyn. Complicated by post-op hypothermia, FREDI, and acute blood loss anemia. All resolved. Appreciate ortho assistance. cont asa 81mg BID for DVT proph. 25-OH vit D level wnl but would keep on 2000 IU vit D standing. needs rehab. (2) Acute blood loss anemia: Plan: 2nd to perioperative blood loss s/p 2 units PRBCs H/H stable this am heme negative stool check iron studies and folate in am previous b12 level this admission wnl (3) Hypertension: Plan: post-op hypotension resolved resume metoprolol resume enalapril cont to hold HCTZ (4) Hyperlipidemia: Plan: crestor recent CPK was minimally elevated due to fall but ok to keep statin on board (5) Depression: Plan: cont sertraline (6) Constipation: Plan: resolved cont miralax BID cont senna/colace (7) Coronary artery disease: Plan: no ischemic symptoms perioperatively or post-op had stents years ago in [facility] cont asa resume BB cont statin (8) Parkinsons disease: Plan: sinemet no issues (9) Fall: Plan: accidental - this led to her right femur fracture b12 level wnl (10) Hypothermia, initial encounter: Plan: 2nd to hypotension/acute blood loss anemia perioperatively resolved (11) Hypotension: Plan: resolved perioperative - 2nd to acute blood loss (12) FREDI (acute kidney injury): Plan: ATN 2nd to hypotension/blood loss resolved peak Cr 1.5 cr today 0.9 repeat Cr in am for stability (13) Chronic kidney disease, stage 3a: Plan: baseline CrCl 30s/40s (14) DVT prophylaxis: Plan: asa 81mg BID (15) Thrombocytopenia: Plan: likely consumptive in the setting of trauma, bleeding during her surgery, etc. platelets trending up cbc in am Plan: ok to d/c tele move to med/surg cont dispo planning and rehab placement d/c guerrero if appetite continues to be poor check clean catch u/a and urine cx left message for son on his voicemail this evening Admission and Anticipated Discharge Date Admission Date: April 19, 2021 Subjective no events overnight tele - NSR, 1 brief run of PAT only patient states she finally moved her bowels (2x) despite such she still "gets filled up easily" no nausea or emesis nursing flowsheets show she is eating about 50% of meals mild right thigh pain only denies dyspnea finally, c/o "jumpy legs" today (cramps) Review of Systems Review of Systems: gen - some fatigue, anorexia cardio - no chest pain pulm - no cough GI - no pain, no nausea, no emesis; stool heme negative overnight Physical Exam Physical Exam: general - NAD, upbeat & cheerful mouth - MM dry neck - no JVD heart - RRR, s1 s2, 1/6 OLU LSB lungs - CTA b/l abd - soft NT ND BS+ ext - pulses feet 2+ b/l chest - minimal tenderness lower right costal margin (lidoderms in place) psych - oriented x 3 musculo - dressings intact Right thigh; right thigh swelling unchanged Results & Data Results & Data ([facility]) Vital Signs (Past 12 Hours) Vital Signs Temp Pulse Pulse Pulse Resp BP Pulse Ox 04/22/21 12:11 36.9 C 55 L 18 143/61 H 96 04/22/21 07:54 37.1 C 81 18 145/65 H 92 04/22/21 07:21 84 04/22/21 04:10 36.9 C 78 20 151/55 H 94 Laboratory Results Laboratory Results - last 24 hr 04/21/21 04/22/21 04/22/21 17:32 03:30 08:45 WBC 11.52 H RBC 2.82 L Hgb 8.7 L 8.5 L Hct 26.8 L 25.8 L MCV 91.5 MCH 30.1 MCHC 32.9 RDW Std Deviation 46.6 H RDW Coeff of Alexandru 13.8 Plt Count 95 L MPV 10.2 Sodium Potassium Chloride Carbon Dioxide Anion Gap BUN Creatinine Est Cr Clr Drug Dosing Est GFR ( Amer) Est GFR (Non-Af Amer) BUN/Creatinine Ratio Glucose Calcium Stool Occult Bld Scrn Negative 04/22/21 08:45 WBC RBC Hgb Hct MCV MCH MCHC RDW Std Deviation RDW Coeff of Alexandru Plt Count MPV Sodium 139 Potassium 3.7 Chloride 109 H Carbon Dioxide 24 Anion Gap 6.0 BUN 23 H Creatinine 0.90 D Est Cr Clr Drug Dosing 43.1 Est GFR ( Amer) 65.7 Est GFR (Non-Af Amer) 56.7 BUN/Creatinine Ratio 25.9 H Glucose 80 Calcium 7.7 L Stool Occult Bld Scrn PG Care Time/CCT Total # of Minutes Spent Total Time Spent with Patient: Total time spent is greater than 50% in coordination of care (as documented) at patient's floor/unit and/or counseling patient: Coding Level of Care Code 80517 Subseq Hosp Care Lvl 3 Diagnoses Closed fracture of proximal end of right femur S72.001A Acute blood loss anemia D62 Hypertension I10 Hyperlipidemia E78.5 Depression F32.9 Constipation K59.00 Coronary artery disease I25.10 Parkinsons disease G20 Fall W19.XXXA Encounter type: initial encounter Hypothermia, initial encounter T68.XXXA Hypotension I95.9 FREDI (acute kidney injury) N17.9 Chronic kidney disease, stage 3a N18.31 DVT prophylaxis Z29.9 Thrombocytopenia D69.6 (1) Fall Encounter type: initial encounter Qualified Code(s): W19.XXXA - Unspecified fall, initial encounter
[2021-04-22] MEDS ORDERED: PRAMIPEXOLE DIHYDROCHLO 0.25 MG TAB PO ONE (13:45)
[2021-04-22] MEDS: DOCUSATE SODIUM/SENNA 50/8.6MG TAB PO SCH (20:24)
[2021-04-23] MEDS: ACETAMINOPHEN 500 MG TAB PO SCH ×3 (05:23→21:17)
[2021-04-23 06:46] LABS: Hematocrit (blood only) 25.6 % (37-47); Hemoglobin 8.3 g/dL (12.0-16.0); Mean Corpuscular Hemoglobin 29.7 pg (25-34); Mean Corpuscular Hgb Conc 32.4 g/dL (32-36); Mean Corpuscular Volume 91.8 fL (80-100); Mean Platelet Volume 10.5 fL (7.4-10.4); Platelet Count 112 K/uL (130-400); RDW Coefficient of Variation 13.7 % (11.5-14.5); RDW Standard Deviation 46.1 fL (36.4-46.3); Red Blood Count 2.79 M/uL (4.2-5.4); White Blood Count 10.03 K/uL (4.8-10.8)
[2021-04-23 07:23] LABS: Creatinine Clr Calc Pharmacy 48.5 ml/min; Est GFR (African American) 75.8 ml/min; Est GFR (Non-African American) 65.4 ml/min
[2021-04-23 07:27] LABS: Ferritin 158.3 ng/ml (8-388)
[2021-04-23 07:40] LABS: Appearance Urine Clear (Clear); Bacteria Urine Automated Negative (Negative); Bilirubin Urine Negative (Negative); Blood Urine 1+ (Negative); Color Urine Yellow; Epithelial Cell Urine Auto >30 /lpf (0-5); Glucose Urine UA Negative (Negative); Ketones Urine Trace (Negative); Leukocyte Esterase Urine Trace (Negative); Nitrite Urine Negative (Negative); Protein Urine 2+ (Negative); RBC Urine Automated 0-4 /hpf (0-4); Specific Gravity Urine 1.018 (1.000-1.030); Urobilinogen Urine Negative (Negative)
[2021-04-23] MEDS: ASPIRIN 81 MG ECTAB PO SCH ×2 (09:03→20:33)
[2021-04-23] MEDS: POLYETHYLENE (MIRALAX) 17 GM PACK PO SCH ×2 (09:03→20:33)
[2021-04-23] MEDS: CARBIDOPA/LEVODOPA 25/100MG TAB PO SCH ×3 (09:03→20:33)
[2021-04-23] MEDS: ENALAPRIL MALEATE 10 MG TAB PO SCH (09:04)
[2021-04-23] MEDS: LIDOCAINE 5% 1 PATCH TD SCH (09:04)
[2021-04-23] MEDS: SERTRALINE HCL 50 MG TABLET PO SCH (09:04)
[2021-04-23] MEDS: MULTIVITAMIN TAB PO SCH (09:04)
[2021-04-23] MEDS: CHOLECALCIFEROL 1,000 UNITS 25 MCG TAB PO SCH (09:04)
[2021-04-23] MEDS: METOPROLOL SUCC 25MG EXT REL TAB PO SCH (09:04)
[2021-04-23] MEDS: ROSUVASTATIN CALCIUM 20 MG TAB PO SCH (09:04)
[2021-04-23] MEDS: TRIAMCINOLONE ACET 0.1% CR 15 GM TUBE TOP SCH ×2 (09:05→20:38)
--- NOTE | 2021-04-23 09:42 | Hospitalist Progress Note ---
Date of Service April 23, 2021 Assessment & Plan (1) Closed fracture of proximal end of right femur: Plan: POD #3 s/p ORIF with long karolyn. Complicated by post-op hypothermia, FREDI, and acute blood loss anemia. All resolved. Appreciate ortho assistance. cont asa 81mg BID for DVT proph. 25-OH vit D level wnl but would keep on 2000 IU vit D standing. needs rehab. And was considering do [facility] versus [facility] locally (2) Acute blood loss anemia: Plan: 2nd to perioperative blood loss s/p 2 units PRBCs H/H stable this am heme negative stool check iron studies and folate in am previous b12 level this admission wnl (3) Hypertension: Plan: Remains slightly hypertensive continue to watch resume metoprolol resume enalapril cont to hold HCTZ (4) Hyperlipidemia: Plan: crestor recent CPK was minimally elevated due to fall but ok to keep statin on board (5) Depression: Plan: cont sertraline (6) Constipation: Plan: resolved cont miralax BID cont senna/colace (7) Coronary artery disease: Plan: no ischemic symptoms perioperatively or post-op had stents years ago in [facility] cont asa resume BB cont statin (8) Parkinsons disease: Plan: sinemet no issues (9) Fall: Plan: accidental - this led to her right femur fracture b12 level wnl (10) Hypothermia, initial encounter: Plan: 2nd to hypotension/acute blood loss anemia perioperatively resolved (11) Hypotension: Plan: resolved perioperative - 2nd to acute blood loss (12) FREDI (acute kidney injury): Plan: ATN 2nd to hypotension/blood loss resolved peak Cr 1.5 cr today 0.9 (13) Chronic kidney disease, stage 3a: Plan: baseline CrCl 30s/40s (14) DVT prophylaxis: Plan: asa 81mg BID (15) Thrombocytopenia: Plan: likely consumptive in the setting of trauma, bleeding during her surgery, etc. platelets trending up cbc in am Plan: Daughter at bedside and updated Admission and Anticipated Discharge Date Admission Date: April 19, 2021 Subjective Patient doing well seen at the bedside with her daughter concerns about hypertension and local wound swelling. Wound was cleared by orthopedics on April 23. Hypertension is likely multifactorial but not causing physiological distress at this time therefore we will not escalate antihypertensives at age 89 Review of Systems Review of Systems: Mild distress and fatigue no headache, no visual changes no speech or swallowing issues no chest pain, pressure or palpitations no shortness of breath, cough or wheezes no abdominal pain, nausea or vomiting, diarrhea or constipation no dysuria, hematuria or frequency Lateral right leg pain and some swelling but no ecchymosis erythema warmth or tenderness no back pain, CVA tenderness or radicular pain no bruising, bleeding or rashes no focal signs of weakness or numbness or altered sensation with exception of some weakness of her leg due to recent surgery no complaints of anxiety or depression.. Results & Data Results & Data ([facility]) Vital Signs (Past 12 Hours) Vital Signs Temp Pulse Resp BP Pulse Ox 04/23/21 07:00 97.9 F 77 20 161/65 H 96 04/22/21 21:49 98.4 F 65 16 161/66 H 95 PG Care Time/CCT Total # of Minutes Spent Total Time Spent with Patient: Total time spent is greater than 50% in coordination of care (as documented) at patient's floor/unit and/or counseling patient: Coding Level of Care Code 97677 Subseq Hosp Care Lvl 2 Diagnoses Closed fracture of proximal end of right femur S72.001A Acute blood loss anemia D62 Hypertension I10 Hyperlipidemia E78.5 Depression F32.9 Constipation K59.00 Coronary artery disease I25.10 Parkinsons disease G20 Fall W19.XXXA Encounter type: initial encounter Hypothermia, initial encounter T68.XXXA Hypotension I95.9 FREDI (acute kidney injury) N17.9 Chronic kidney disease, stage 3a N18.31 DVT prophylaxis Z29.9 Thrombocytopenia D69.6 (1) Fall Encounter type: initial encounter Qualified Code(s): W19.XXXA - Unspecified fall, initial encounter
--- NOTE | 2021-04-23 12:48 | Orthopedic Progress Note ---
Date of Service April 23, 2021 Assessment & Plan (1) Closed fracture of proximal end of right femur: Plan: S/P ORIF R hip fracture POD #3. Resolved post op-anemia, hypotensive, hypothermia---followed by medicine service. Right hip dressing changed. Check daily, change only if saturated. Otherwise keep intact. PT/OT: WBAT with walker Ice to right hip prn for pain and swelling; Pain medication per primary service ASA 81mg BID for DVT prophylaxis x 6wks, B knee high teds until seen in office (can remove to bath and for 4hrs daily), SCDs in house DC planning. Follow-up with Dr Varela on 05-04 (Friday) at 1:30pm at [facility]. Call the office at [phone] with any questions or concerns. Admission and Anticipated Discharge Date Admission Date: April 19, 2021 Subjective Patient doing well. Says her hip gets sore at times, but tylenol helps. She has been walking and receiving therapy. Had a bowel movement and urinating. Still has poor diet but drinking fluids and boost. Denies f/c/s, CP, SOB, lightheadedness, or dizziness. Resolved hypothermia, post-op anemia, and hypotension. Physical Exam Physical Exam: Tolerated removal of right hip dressings. [place] are intact. No active drainage. Dry, intact. No signs of infection. Painless log rolling. No pain with right knee gentle motion. NV intact B LE with palpable DP and PT pulses. Sensation intact to light touch. Calves are soft and neg homans. 5/5 B EHL, TA, and gastroc. Results & Data ([facility]) Vital Signs (Past 12 Hours) Vital Signs Temp Pulse Resp BP Pulse Ox 04/23/21 07:00 36.6 C 77 20 161/65 H 96 Laboratory Results 04/23/21 04/23/21 04/23/21 Range/Units 07:20 06:14 06:14 WBC (4.8-10.8) K/uL RBC (4.2-5.4) M/uL Hgb (12.0-16.0) g/dL Hct (37-47) % MCV (80-100) fL MCH (25-34) pg MCHC (32-36) g/dL RDW Std Deviation (36.4-46.3) fL RDW Coeff of Alexandru (11.5-14.5) % Plt Count (130-400) K/uL MPV (7.4-10.4) fL Creatinine 0.80 (0.6-1.2) mg/dl Est Cr Clr Drug Dosing 48.5 ml/min Est GFR ( Amer) 75.8 ml/min Est GFR (Non-Af Amer) 65.4 ml/min Ferritin 158.3 (8-388) ng/ml Folate 17.20 (>5.38) ng/ml Urine Color Yellow Urine Appearance Clear (Clear) Urine pH 7.0 (4.5-7.5) Ur Specific Benld 1.018 (1.000-1.030) Urine Protein 2+ H (Negative) Urine Glucose (UA) Negative (Negative) Urine Ketones Trace H (Negative) Urine Blood 1+ H (Negative) Urine Nitrite Negative (Negative) Urine Bilirubin Negative (Negative) Urine Urobilinogen Negative (Negative) Ur Leukocyte Esterase Trace H (Negative) Urine WBC (Auto) 1-5 (0-5) /hpf Urine RBC (Auto) 0-4 (0-4) /hpf U Hyaline Cast (Auto) 1-5 (0-5) /lpf U Epithel Cells (Auto) >30 H (0-5) /lpf Urine Bacteria (Auto) Negative (Negative) Urine Yeast Not Reportable 04/23/21 Range/Units 06:14 WBC 10.03 (4.8-10.8) K/uL RBC 2.79 L (4.2-5.4) M/uL Hgb 8.3 L (12.0-16.0) g/dL Hct 25.6 L (37-47) % MCV 91.8 (80-100) fL MCH 29.7 (25-34) pg MCHC 32.4 (32-36) g/dL RDW Std Deviation 46.1 (36.4-46.3) fL RDW Coeff of Alexandru 13.7 (11.5-14.5) % Plt Count 112 L (130-400) K/uL MPV 10.5 H (7.4-10.4) fL Creatinine (0.6-1.2) mg/dl Est Cr Clr Drug Dosing ml/min Est GFR ( Amer) ml/min Est GFR (Non-Af Amer) ml/min Ferritin (8-388) ng/ml Folate (>5.38) ng/ml Urine Color Urine Appearance (Clear) Urine pH (4.5-7.5) Ur Specific Benld (1.000-1.030) Urine Protein (Negative) Urine Glucose (UA) (Negative) Urine Ketones (Negative) Urine Blood (Negative) Urine Nitrite (Negative) Urine Bilirubin (Negative) Urine Urobilinogen (Negative) Ur Leukocyte Esterase (Negative) Urine WBC (Auto) (0-5) /hpf Urine RBC (Auto) (0-4) /hpf U Hyaline Cast (Auto) (0-5) /lpf U Epithel Cells (Auto) (0-5) /lpf Urine Bacteria (Auto) (Negative) Urine Yeast
[2021-04-23] MEDS: DOCUSATE SODIUM/SENNA 50/8.6MG TAB PO SCH (20:34)
[2021-04-24] MEDS: ACETAMINOPHEN 500 MG TAB PO SCH ×3 (05:52→20:51)
[2021-04-24 08:44] LABS: Iron 36 mcg/dl (35-150); Transferrin 150 mg/dl (200-360); Transferrin Percent Saturation 17 % (15-50)
[2021-04-24] MEDS: CARBIDOPA/LEVODOPA 25/100MG TAB PO SCH ×3 (08:49→20:53)
[2021-04-24] MEDS: ASPIRIN 81 MG ECTAB PO SCH ×2 (08:49→20:52)
[2021-04-24] MEDS: ENALAPRIL MALEATE 10 MG TAB PO SCH (08:50)
[2021-04-24] MEDS: ROSUVASTATIN CALCIUM 20 MG TAB PO SCH (08:50)
[2021-04-24] MEDS: MULTIVITAMIN TAB PO SCH (08:50)
[2021-04-24] MEDS: TRIAMCINOLONE ACET 0.1% CR 15 GM TUBE TOP SCH ×2 (08:50→20:51)
[2021-04-24] MEDS: CHOLECALCIFEROL 1,000 UNITS 25 MCG TAB PO SCH (08:51)
[2021-04-24] MEDS: METOPROLOL SUCC 25MG EXT REL TAB PO SCH (08:51)
[2021-04-24] MEDS: SERTRALINE HCL 50 MG TABLET PO SCH (08:51)
[2021-04-24] MEDS: LIDOCAINE 5% 1 PATCH TD SCH (08:52)
[2021-04-24] MEDS: POLYETHYLENE (MIRALAX) 17 GM PACK PO SCH ×2 (08:54→20:52)
--- NOTE | 2021-04-24 10:02 | Orthopedic Progress Note ---
Date of Service April 24, 2021 Assessment & Plan (1) Closed fracture of proximal end of right femur: Plan: S/P ORIF R hip fracture POD #5. followed by medicine service. Right hip dressing Is clean dry and intact. Check daily, change only if saturated. Otherwise keep intact. PT/OT: WBAT with walker Ice to right hip prn for pain and swelling Pain medication per primary service ASA 81mg BID for DVT prophylaxis x 6wks, B knee high teds until seen in office (can remove to bath and for 4hrs daily), SCDs in house DC planning. Follow-up with Dr Varela on 05/04/21 at 1:30pm at [facility]. Call the office at [phone] with any questions or concerns. Admission and Anticipated Discharge Date Admission Date: April 19, 2021 Subjective This 89-year-old female is day 5 status post Open reduction internal fixation of right femoral fracture with troches nail.Patient states that her hip pain is well controlled with p.o. Tylenol. She states that her dressings are clear without drainage. She states that she has been doing physical therapy and Occupational Therapy using her walker. She states that she has discussed discharge planning to rehab facility in the [facility] but is awaiting approval from her insurance. Currently she denies chest pain, shortness of breath, fever, chills, sweats, lethargy, numbness or tingling in her right lower extremity. Review of Systems Review of Systems: Review of systems unremarkable except for those things stated in the HPI Physical Exam Physical Exam: Right hip: Dressings are clean dry and intact. Patient has no pain with logroll testing. She is unable to actively perform a straight leg raise test, however she is able to actively dorsi and plantarflex her foot. Knee range of motion is from 0 to 90 degrees. She has no pain with light passive internal and external rotation of the hip. Patient is neurovascular intact in the right lower extremity. Peripheral pulses are palpable. Capillary refill is approximately 2 seconds. Results & Data ([facility]) Vital Signs (Past 12 Hours) Vital Signs Temp Pulse Pulse Resp BP BP Pulse Ox 04/24/21 07:48 36.8 C 70 18 163/69 H 94 04/23/21 22:18 37.0 C 84 16 165/66 H 93 Laboratory Results 04/24/21 Range/Units 07:49 Iron 36 (35-150) mcg/dl Transferrin 150 L (200-360) mg/dl Transferrin % Sat 17 (15-50) %
--- NOTE | 2021-04-24 18:42 | Hospitalist Progress Note ---
Date of Service April 24, 2021 Assessment & Plan (1) Femur fracture, right: Plan: POD #5 Awaiting placement at [facility]. No bed available. Referral made to [facility] Ready for discharge when a bed is available Continue physical therapy Further management per orthopedics (2) Acute blood loss anemia: Plan: 2nd to perioperative blood loss s/p 2 units PRBCs H/H stable this am at 8.3 g/[place] heme negative stool Follow serial labs Hypotension resolved (3) Hypertension: Plan: Still trending a little bit high Continue metoprolol and enalapril Continue vital signs per protocol (4) Hyperlipidemia: Plan: Continue Crestor for now CPK was 636. This is most likely secondary to fall Check repeat CPK to rule out rhabdomyolysis (5) Constipation: Plan: Resolved continue MiraLAX twice daily as well as Senokot and Colace Discharge with bowel regimen (6) Coronary artery disease: Plan: No chest pain or tightness Continue aspirin Continue beta-don Continue statin (7) Parkinsons disease: Plan: Continue Sinemet (8) Hypothermia, initial encounter: Plan: This is resolved Most likely secondary to hypotension and acute blood loss perioperatively (9) FREDI (acute kidney injury): Plan: Acute tubular necrosis secondary to hypotension and perioperative blood loss This is resolved Creatinine 0.8 (10) Chronic kidney disease, stage 3a: Plan: Creatinine 0.8 Outpatient management (11) Thrombocytopenia: Plan: Resolved Platelet count yesterday 112,000 (12) DVT prophylaxis: Plan: Aspirin Further chemical prophylaxis per orthopedics Continue to ambulate as tolerated Disposition: Still no bed available at [facility] Discussed with case management Patient ready for discharge Placed referral to [facility] Admission and Anticipated Discharge Date Admission Date: April 19, 2021 Subjective Attending: Dr. Goodson Patient seen at bedside in bedside chair Pain generally controlled to hip fracture No fever or chills Did well with physical therapy today Awaiting disposition for [facility] Patient agreeable to referral to [facility] as there is no bed available [place] No other acute complaints. Review of Systems Review of Systems: All systems reviewed & are unremarkable except as noted in Subjective Physical Exam Physical Exam: GENERAL : No acute distress EYES: No icterus, gaze conjugate NOSE: No evidence of epistaxis MOUTH: No lesions or candidiasis NECK: Supple LUNGS: CTA B/L, no wheezes, rales or rhonchi HEART: Regular, rate controlled ABDOMEN: Soft, NT, ND, BS Present EXTREMITIES: No LE edema, pedal pulses intact. Postsurgical site appears well- healing with no bleeding or signs of infection. Minimal pain to palpation NEURO: A&OX3 Results & Data Results & Data ([facility]) Vital Signs (Past 12 Hours) Vital Signs Temp Pulse Resp BP BP Pulse Ox 04/24/21 15:18 37.0 C 67 18 159/96 H 99 04/24/21 07:48 36.8 C 70 18 163/69 H 94 Laboratory Results 04/23/21 06:14 04/23/21 06:14 PG Care Time/CCT Total # of Minutes Spent Total Time Spent with Patient: Total time spent is greater than 50% in coordination of care (as documented) at patient's floor/unit and/or counseling patient: Coding Level of Care Code 65971 Subseq Hosp Care Lvl 2 Diagnoses Femur fracture, right S72.91XA Encounter type: initial encounter Fracture alignment: displaced Fracture morphology: comminuted Fracture type: closed Acute blood loss anemia D62 Hypertension I10 Hyperlipidemia E78.5 Constipation K59.00 Coronary artery disease I25.10 Parkinsons disease G20 Hypothermia, initial encounter T68.XXXA FREDI (acute kidney injury) N17.9 Chronic kidney disease, stage 3a N18.31 Thrombocytopenia D69.6 DVT prophylaxis Z29.9 Time Spent (min) 30 (1) Femur fracture, right Encounter type: initial encounter Fracture alignment: displaced Fracture morphology: comminuted Fracture type: closed
[2021-04-24] MEDS: DOCUSATE SODIUM/SENNA 50/8.6MG TAB PO SCH (20:52)
[2021-04-25] MEDS: ACETAMINOPHEN 500 MG TAB PO SCH ×3 (06:01→20:41)
[2021-04-25 07:39] LABS: Hemoglobin 8.1 g/dL (12.0-16.0); Mean Corpuscular Hemoglobin 29.6 pg (25-34); Mean Corpuscular Hgb Conc 32.4 g/dL (32-36); Mean Corpuscular Volume 91.2 fL (80-100); Mean Platelet Volume 10.2 fL (7.4-10.4); Platelet Count 163 K/uL (130-400); RDW Coefficient of Variation 13.6 % (11.5-14.5); RDW Standard Deviation 45.1 fL (36.4-46.3); Red Blood Count 2.74 M/uL (4.2-5.4); White Blood Count 8.92 K/uL (4.8-10.8)
[2021-04-25] MEDS: ASPIRIN 81 MG ECTAB PO SCH ×2 (08:22→20:41)
[2021-04-25] MEDS: ROSUVASTATIN CALCIUM 20 MG TAB PO SCH (08:22)
[2021-04-25] MEDS: CHOLECALCIFEROL 1,000 UNITS 25 MCG TAB PO SCH (08:22)
[2021-04-25] MEDS: ENALAPRIL MALEATE 10 MG TAB PO SCH (08:22)
[2021-04-25] MEDS: MULTIVITAMIN TAB PO SCH (08:22)
[2021-04-25] MEDS: METOPROLOL SUCC 25MG EXT REL TAB PO SCH (08:22)
[2021-04-25] MEDS: SERTRALINE HCL 50 MG TABLET PO SCH (08:22)
[2021-04-25] MEDS: CARBIDOPA/LEVODOPA 25/100MG TAB PO SCH ×3 (08:23→20:41)
[2021-04-25] MEDS: LIDOCAINE 5% 1 PATCH TD SCH (08:23)
[2021-04-25] MEDS: TRIAMCINOLONE ACET 0.1% CR 15 GM TUBE TOP SCH ×2 (08:28→20:42)
[2021-04-25] MEDS: POLYETHYLENE (MIRALAX) 17 GM PACK PO SCH ×2 (08:28→20:42)
[2021-04-25] MEDS ORDERED: ACETAMINOPHEN 325 MG TAB PO STA (14:15)
[2021-04-25] MEDS ORDERED: SODIUM CHLORIDE 0.9% 250 ML IV PRN (14:15)
--- NOTE | 2021-04-25 16:20 | Hospitalist Progress Note ---
Date of Service April 25, 2021 Assessment & Plan (1) Femur fracture, right: Plan: POD #6 Still no beds available [facility]. Referral has been made to [facility] patient has been accepted. Patient was to be discharged but hemoglobin was low and patient required transfusion. Anticipate discharge to [facility] tomorrow Continue physical therapy Further management per orthopedics (2) Acute blood loss anemia: Plan: 2nd to perioperative blood loss s/p 2 units PRBCs 04/19/2021 H/H with slow decline over the last several days and now 8.1 g/Madina Type and cross and transfuse 1 unit of packed red blood cells heme negative stool Follow serial labs Hypotension resolved (3) Hypertension: Plan: Still trending a little bit high Continue metoprolol and enalapril Continue vital signs per protocol No chest pain or tightness. No shortness of breath. (4) Hyperlipidemia: Plan: Continue Crestor for now CPK was 636. This is most likely secondary to fall Repeat CPK this morning is 203 (5) Constipation: Plan: Resolved Continue MiraLAX twice daily as well as Senokot and Colace Discharge with same bowel regimen (6) Coronary artery disease: Plan: No chest pain or tightness Continue aspirin Continue beta-don Continue statin (7) Parkinsons disease: Plan: Continue Sinemet (8) Hypothermia, initial encounter: Plan: Resolved Most likely secondary to hypotension and acute blood loss perioperatively (9) FREDI (acute kidney injury): Plan: Acute tubular necrosis secondary to hypotension and perioperative blood loss This is resolved Creatinine 0.8 (10) Chronic kidney disease, stage 3a: Plan: Creatinine 0.8 Outpatient management (11) Thrombocytopenia: Plan: Resolved Platelet count 163 (12) DVT prophylaxis: Plan: Aspirin Further chemical prophylaxis per orthopedics Continue to ambulate as tolerated Disposition: Still no bed available at [facility] Patient ready for discharge Accepted at [facility] Plan on discharge to rehab tomorrow Admission and Anticipated Discharge Date Admission Date: April 19, 2021 Subjective Patient seen and examined at bedside. She is doing well. Pain is well controlled. Surgical site inspected. There is no bleeding or discharge. Dressing is dry and intact. Patient denies fever, sweats, chills, rigors. No acute complaints. Review of Systems Review of Systems: All systems reviewed & are unremarkable except as noted in Subjective Physical Exam Physical Exam: GENERAL : No acute distress EYES: No icterus, gaze conjugate NOSE: No evidence of epistaxis MOUTH: No lesions or candidiasis NECK: Supple LUNGS: CTA B/L, no wheezes, rales or rhonchi HEART: Regular, rate controlled ABDOMEN: Soft, NT, ND, BS Present EXTREMITIES: No LE edema, pedal pulses intact and equal bilaterally. Dressing to right hip repair is dry and intact. Lidocaine patches are in place NEURO: A&OX3 Results & Data Results & Data ([facility]) Vital Signs (Past 12 Hours) Vital Signs Temp Pulse Pulse Resp BP Pulse Ox 04/25/21 15:56 36.8 C 69 22 160/65 H 97 04/25/21 07:45 36.7 C 76 16 164/63 H 96 Laboratory Results 04/25/21 07:03 04/23/21 06:14 PG Care Time/CCT Total # of Minutes Spent Total Time Spent with Patient: Total time spent is greater than 50% in coordination of care (as documented) at patient's floor/unit and/or counseling patient:30 minutes Coding Level of Care Code 70695 Subseq Hosp Care Lvl 2 Diagnoses Femur fracture, right S72.91XA Encounter type: initial encounter Fracture alignment: displaced Fracture morphology: comminuted Fracture type: closed Acute blood loss anemia D62 Hypertension I10 Hyperlipidemia E78.5 Constipation K59.00 Coronary artery disease I25.10 Parkinsons disease G20 Hypothermia, initial encounter T68.XXXA FREDI (acute kidney injury) N17.9 Chronic kidney disease, stage 3a N18.31 Thrombocytopenia D69.6 DVT prophylaxis Z29.9 Time Spent (min) 30 (1) Femur fracture, right Encounter type: initial encounter Fracture alignment: displaced Fracture morphology: comminuted Fracture type: closed
[2021-04-25] MEDS: DOCUSATE SODIUM/SENNA 50/8.6MG TAB PO SCH (20:41)
[2021-04-26] MEDS: ACETAMINOPHEN 500 MG TAB PO SCH (05:21)
[2021-04-26] MEDS: CARBIDOPA/LEVODOPA 25/100MG TAB PO SCH (08:32)
[2021-04-26] MEDS: ASPIRIN 81 MG ECTAB PO SCH (08:32)
[2021-04-26] MEDS: METOPROLOL SUCC 25MG EXT REL TAB PO SCH (08:33)
[2021-04-26] MEDS: ENALAPRIL MALEATE 10 MG TAB PO SCH (08:33)
[2021-04-26] MEDS: CHOLECALCIFEROL 1,000 UNITS 25 MCG TAB PO SCH (08:33)
[2021-04-26] MEDS: MULTIVITAMIN TAB PO SCH (08:34)
[2021-04-26] MEDS: ROSUVASTATIN CALCIUM 20 MG TAB PO SCH (08:34)
[2021-04-26] MEDS: POLYETHYLENE (MIRALAX) 17 GM PACK PO SCH (08:34)
[2021-04-26] MEDS: SERTRALINE HCL 50 MG TABLET PO SCH (08:34)
[2021-04-26] MEDS: TRIAMCINOLONE ACET 0.1% CR 15 GM TUBE TOP SCH (08:35)
[2021-04-26 09:14] LABS: Hematocrit (blood only) 30.2 % (37-47); Mean Corpuscular Hemoglobin 30.4 pg (25-34); Mean Corpuscular Hgb Conc 33.1 g/dL (32-36); Mean Corpuscular Volume 91.8 fL (80-100); Mean Platelet Volume 9.7 fL (7.4-10.4); Platelet Count 204 K/uL (130-400); RDW Standard Deviation 46.3 fL (36.4-46.3); Red Blood Count 3.29 M/uL (4.2-5.4); White Blood Count 8.99 K/uL (4.8-10.8)
[2021-04-26] MEDS: LIDOCAINE 5% 1 PATCH TD SCH (09:21)
[2021-04-26 09:50] LABS: BUN Creatinine Ratio 27.9 (10-20); Creatinine Clr Calc Pharmacy 54.7 ml/min; Est GFR (African American) 87.5 ml/min; Est GFR (Non-African American) 75.5 ml/min; Potassium 3.5 mmol/L (3.5-5.1)
--- NOTE | 2021-04-26 12:17 | Discharge Summary ---
Date of Service April 26, 2021 Admission HPI Per Admitting Provider The patient is an 89-year-old female with a past medical history including hypertension, hyperlipidemia, depression, dermatitis and constipation, who presents to the emergency department as noted above. She did receive fentanyl 50 mcg IV x2 with only mild improvement in pain. X-ray in the emergency department showed a displaced right proximal femur fracture. The patient also received Zofran 4 mg IV, normal saline 500 mL fluid bolus, and then 500 mils at 125 mils per hour. Admission Exam Per Admitting Provider The patient is awake, alert and oriented 3, well developed and well nourished, normocephalic and atraumatic, lying in bed and in no acute distress. HEENT--PERRL, EOMI, mucous membranes and oropharynx dry. Neck--supple. No JVD. No bruits. Thyroid normal, trachea midline, no adenopathy. Heart--normal S1 and S2. No murmurs, rubs or gallops. Lungs--clear bilaterally, no respiratory distress, no accessory muscle use. Abdomen--normal bowel sounds and soft. Nontender. Nondistended, no hernias or masses, no organomegaly. Extremities--no cyanosis or clubbing. No edema. There are good distal pulses b/l. Dermatologic--skin is mildly dry Neurologic--cranial nerves II through XII grossly intact. Rheumatologic--limited due to right hip pain Psychiatric--normal affect. Principal Diagnosis Right femur fracture Discharge Exam GENERAL : No acute distress EYES: No icterus, gaze conjugate NOSE: No evidence of epistaxis MOUTH: No lesions or candidiasis NECK: Supple LUNGS: CTA B/L, no wheezes, rales or rhonchi HEART: Regular, rate controlled ABDOMEN: Soft, NT, ND, BS Present EXTREMITIES: No LE edema, pedal pulses intact and equal bilaterally. There is no edema. Lidocaine patches in place near the incisional sites of the right hip. Good sensation. NEURO: A&OX3 Discharge Data Allergies Allergy/AdvReac Type Severity Reaction Status Date / Time No Known Allergies Allergy Verified 04/19/21 08:56 Consultations 04/19/21 02:56 ED Decision to Admit Stat 04/19/21 06:25 Consult Orthopedic Surgery Routine Procedures Performed Operation Date: 04/19/21 08:40 Actual Procedures p Right Proximal Femur Fracture Serafin Placement(Right) - Nicolás Varela MD Ordered Studies 04/19/21 09:30 FL hip RT 2-3V Routine Hospital Course (1) Femur fracture, right: POD #7 Still no beds available [facility]. Referral has been made to [facility] patient has been accepted. Discharge today Continue physical therapy per [facility] Follow-up with orthopedics with Dr Varela on 05/04/21 at 1:30pm at [facility]. Call the office at [phone] with any questions or concerns. (2) Acute blood loss anemia: 2nd to perioperative blood loss s/p 2 units PRBCs 04/19/2021 H/H with slow decline over the last several days and 8.1 g/Madina Transfused additional 1 unit of packed red blood cells 04/25/2021 heme negative stool Follow serial labs Hypotension resolved (3) Hypertension: Still trending a little bit high Continue metoprolol and enalapril No chest pain or tightness. No shortness of breath. Pain control for hip fracture (4) Hyperlipidemia: Continue Crestor for now CPK was 636. This is most likely secondary to fall Repeat CPK 203 Continue on hydration (5) Constipation: Resolved Continue MiraLAX twice daily as well as Senokot and Colace Discharge with same bowel regimen (6) Coronary artery disease: No chest pain or tightness Continue aspirin Continue beta-don Continue statin (7) Parkinsons disease: Continue Sinemet (8) Hypothermia, initial encounter: Resolved Most likely secondary to hypotension and acute blood loss perioperatively (9) FREDI (acute kidney injury): Acute tubular necrosis secondary to hypotension and perioperative blood loss This is resolved Creatinine within normal limits (10) Chronic kidney disease, stage 3a: Creatinine 0.71 Outpatient management (11) Thrombocytopenia: Resolved Platelet count now 204,000 (12) DVT prophylaxis: Aspirin Further chemical prophylaxis per orthopedics Continue to ambulate as tolerated Disposition: Still no bed available at [facility] Patient ready for discharge to [facility] Plan on discharge to rehab today Total Time Total Time Spent Total Time Spent (In Minutes): 35 Discharge Plan Discharge Items Patient Disposition: Transfer Inpatient Rehab Fac Reason For Visit: RIGHT PROX FEMUR FRACTURE Discharge Diagnosis: right prox femur fracture repair, 04/19/21 Activity: Per Instructions section Activity Comment: as per PT /OT Bathing: No limitations Exercise/Sports: Gradually increase as tolerated Weightbearing Comment: Weightbearing as tolerated with walker Non-emergency contact: Primary Care Provider Call non-emergency contact if: your symptoms worsen Follow-up/Referrals: Nicolás Varela MD [Physician] - 05/04/21 1:30 pm Radha Arzate D.O. [Primary Care Provider] - Diet: Regular Addtl Attending Provider Instructions: please have follow up with orthopedics Addtl Clinical Quality Analyst Provider Instructions: Right hip dressing keep intact and dry. Call office if becomes saturated. PT/OT: WBAT with walker Right leg Ice to right hip as needed for pain and swelling; Pain medication per primary service ASA 81mg twice daily for prevention of blood clots x 6wks, Bilateral knee high teds until seen in office (can remove to bath and for 4hrs daily) Follow-up with Dr Varela on 05-04 (Friday) at 1:30pm at [facility]. Call the office at [phone] with any questions or concerns. Pending Studies at Discharge: Yes Stand-Alone Forms: [facility] Skilled Items Patient informed of condition?: Yes DNR: No Discharge Level of Care: Acute rehab Communicable Disease: No Discharge Prognosis: Stable Lines: None Urinary Catheter: No Medications and DC Order Prescriptions: New multivitamin [Daily-Jagdish] Tablet 1 tab PO QAM Qty: 30 RF: 0 polyethylene glycol 3350 [Miralax] 17 gram Powder In Packet 17 g PO BID Qty: 60 RF: 0 hydrocodone-acetaminophen 5-325 mg Tablet 1 tab PO Q4H PRN (Reason: pain) Qty: 30 RF: 0 sennosides-docusate sodium [Senokot-S] 8.6-50 mg Tablet 2 tab PO HS Qty: 30 RF: 0 aspirin 81 mg Tablet,Delayed Release (Dr/Ec) 81 mg PO BID Qty: 60 RF: 0 lidocaine 5 % Adhesive Patch,Medicated 3 patch transdermal QAM Qty: 1 RF: 0 cholecalciferol (vitamin D3) 25 mcg (1,000 unit) Capsule 2,000 unit PO QAM Qty: 30 RF: 0 Continued quinapril 10 mg tablet 10 mg PO BID RF: 0 hydrochlorothiazide 25 mg tablet 12.5 mg PO Q OTHER DAY RF: 0 metoprolol succinate 25 mg tablet extended release 24 hr 25 mg PO DAILY RF: 0 rosuvastatin 40 mg tablet 40 mg PO DAILY RF: 0 triamcinolone acetonide 0.1 % cream 160 applic TOPICAL BID RF: 0 Stool Softener (docusate olimpia) 100 mg tablet 100 mg PO DAILY RF: 0 sertraline 25 mg tablet 12.5 mg PO DAILY RF: 0 carbidopa-levodopa 25-100 mg Tablet 25 - 100 tab PO DAILY RF: 0 Discontinued quinapril 20 mg tablet 20 mg PO BID RF: 0 aspirin 81 mg tablet 81 mg PO DAILY RF: 0 Discharge Orders: Discharge Order (Routine); Ordered 04/25/21 Ordered By: Billy Goodson Admission Data Admit Date/Time: 04/19/21 03:23 Attending Provider: iBlly Goodson Admit Provider: Solomon Alexis Primary Care Provider: Radha Arzate Other Providers: Solomon Alexis ; Nicolás Varela ; [facility] Other Interventions: Discharge Summary Assessment (RN) Last Done: 04/26/21 11:10 Coding Level of Care Code D/C DAY MANAGEMENT >30 MINS Diagnoses Femur fracture, right S72.91XA Encounter type: initial encounter Fracture alignment: displaced Fracture morphology: comminuted Fracture type: closed Acute blood loss anemia D62 Hypertension I10 Hyperlipidemia E78.5 Constipation K59.00 Coronary artery disease I25.10 Parkinsons disease G20 Hypothermia, initial encounter T68.XXXA FREDI (acute kidney injury) N17.9 Chronic kidney disease, stage 3a N18.31 Thrombocytopenia D69.6 DVT prophylaxis Z29.9 Time Spent (min) 35
== END 2021-04-26 13:35 | DRG 480 ==
LOC: ED 23:50 → 2N 04-19 03:23 → SUATTDRO 04-19 03:23 → 2N 04-19 06:07 → 3W 04-22 01:34